=== PATIENT | male | born 1945 | race Caucasian/White ===

== ENCOUNTER 2021-10-16 12:27 | Inpatient (IN) | payer OTHER, MEDICARE ==
[2021-10-16 13:38] LABS: Hemoglobin 12.8 g/dL (13.5-17.5); Mean Corpuscular HGB CONC 33.9 g/dL (32.0-36.0); Mean Corpuscular Hemoglobin 29.5 pg (27.0-33.0); Mean Corpuscular Volume 87.1 fl (81.2-95.1); Mean Platelet Volume 9.5 fl (7.4-10.4); Platelet Count 264 10x3/uL (150-450); RBC Distribution Width 15.3 % (11.5-14.5); Red Blood Cell (RBC) Count 4.34 10x6/uL (4.32-5.72); White Blood Cell (WBC) Count 12.1 10x3/uL (3.5-10.5)
[2021-10-16 13:48] LABS: ALT (SGPT) 37 U/L (8-55); AST (SGOT) 43 U/L (5-34); Albumin 3.5 g/dL (3.4-4.8); Alkaline Phosphatase 124 U/L (40-110); Anion Gap 16 mmol/L (10-20); BUN (Urea Nitrogen) 22 mg/dL (8.4-25.7); Bilirubin, Total 0.8 mg/dL (0.2-1.2); Calc. Creatinine Clearance 0 mL/min (70-130); Calcium 9.6 mg/dL (7.8-10.44); Carbon Dioxide 25 mmol/L (23-31); Chloride 102 mmol/L (98-107); Globulin 3.9 g/dL (2.4-3.5); Glucose 180 mg/dL (83-110); Magnesium 2.2 mg/dL (1.6-2.6); Potassium 4.1 mmol/L (3.5-5.1); Protein, Total 7.4 g/dL (5.8-8.1); Sodium 139 mmol/L (136-145)
[2021-10-16 13:57] LABS: Actual Bicarbonate (HCO3v) 25 mEq/L (22-28); Base Excess 0.4 mEq/L (-2.0 to +3.0); Calcium, Ionized (venous) 1.07 mmol/L (1.16-1.32); Chloride (VBG) 103 mmol/L (98-106); Hemoglobin (Hb) 13.2 g/dL (12.6-17.4); Potassium (VBG) 4.02 mmol/L (3.70-5.30); Puncture Site Other Site; RapidComm Collect By CBN; Sodium 137.8 mmol/L (133-146)
[2021-10-16] MEDS ORDERED: Acetaminophen 650 MG Suppository PR PRN (14:14)
[2021-10-16 14:15] LABS: SARS-CoV-2 NAA Rapid Test DETECTED (NotDetected)
[2021-10-16 14:18] LABS: Band 16 % (5-11); Lymphocytes 4 % (21-51); Neutrophil 76 % (42-75)
[2021-10-16 14:19] LABS: Monocytes 4 % (0-10); Platelet Morphology Comment Appears Adequate
[2021-10-16 14:20] LABS: RBC Morphology Normal
[2021-10-16] MEDS ORDERED: cefTRIAXone\\ROCEPHIN 1 GM VIAL ONE (14:22)
[2021-10-16 14:43] LABS: MDiff Complete? YES
[2021-10-16] MEDS ORDERED: Pharmacy to Dose REMDESIVIR IVPB PRN (15:23)
[2021-10-16] MEDS ORDERED: Azithromycin 500 MG VIAL ONE (15:25)
[2021-10-16] MEDS ORDERED: Ventolin HFA Inhaler 60 PUFF INHALER INH PRN (16:37)
[2021-10-16] MEDS: REMDESIVIR 200 MG in Sodium Chloride 0.9% 250 ML 210 ML IV SCH ×2 (18:00→18:29)
[2021-10-16] MEDS: Famotidine 20 MG TAB PO SCH (20:47)
[2021-10-16] MEDS: Dexamethasone 20 MG/5 ML VIAL SLOW IVP SCH (20:48)
[2021-10-17 04:35] LABS: #Monocytes 0.9 10x3/uL (0.0-1.1); #Neutrophils 12.6 10x3/uL (1.5-8.4); %Basophils 0.1 % (0.0-2.0); %Lymphocytes 4.8 % (18.0-47.0); %Monocytes 6.5 % (0.0-10.0); %Neutrophils 87.8 % (40.0-75.0); Hemoglobin 12.8 g/dL (13.5-17.5); Mean Corpuscular HGB CONC 32.8 g/dL (32.0-36.0); Mean Corpuscular Hemoglobin 29.1 pg (27.0-33.0); Mean Corpuscular Volume 88.6 fl (81.2-95.1); Mean Platelet Volume 9.4 fl (7.4-10.4); Platelet Count 324 10x3/uL (150-450); White Blood Cell (WBC) Count 14.3 10x3/uL (3.5-10.5)
[2021-10-17 04:52] LABS: Anion Gap 16 mmol/L (10-20); BUN (Urea Nitrogen) 23 mg/dL (8.4-25.7); Calc. Creatinine Clearance 164 mL/min (70-130); Calcium 8.9 mg/dL (7.8-10.44); Carbon Dioxide 25 mmol/L (23-31); Chloride 103 mmol/L (98-107); Glucose 189 mg/dL (83-110); Potassium 4.4 mmol/L (3.5-5.1); Sodium 140 mmol/L (136-145)
[2021-10-17] MEDS: Furosemide 40 MG/4 ML VIAL SLOW IVP SCH ×2 (06:05→14:08)
[2021-10-17] MEDS: Dexamethasone 20 MG/5 ML VIAL SLOW IVP SCH ×2 (08:06→20:51)
[2021-10-17] MEDS: Enoxaparin Sodium 40 MG/0.4 ML SYRINGE SC SCH (08:07)
[2021-10-17] MEDS: Zinc Sulfate 220 MG CAP PO SCH (08:07)
[2021-10-17] MEDS: Famotidine 20 MG TAB PO SCH ×2 (08:07→20:51)
[2021-10-17] MEDS: Cholecalciferol (Vitamin D3) 400 UNITS TAB PO SCH ×3 (10:05→20:52)
[2021-10-17] MEDS ORDERED: Iopamidol 370 76% 100 ML VIAL ONE (11:02)
[2021-10-17] MEDS ORDERED: BARICITINIB 2 MG TAB PO SCH (14:00)
[2021-10-17] MEDS: Azithromycin 250 MG TAB PO SCH (14:06)
[2021-10-17] MEDS: cefTRIAXone\\ROCEPHIN 1 GM in Sodium Chloride 0.9% 100 ML IVPB SCH (14:07)
[2021-10-17] MEDS: BARICITINIB 2 MG TAB PO SCH (14:14)
[2021-10-17] MEDS ORDERED: REMDESIVIR 100 MG in Sodium Chloride 0.9% 250 ML 230 ML IV SCH (17:00)
[2021-10-18] MEDS: Melatonin 3 MG TAB PO PRN (00:13)
[2021-10-18] MEDS: Benzonatate 100 MG CAP PO PRN ×3 (01:09→21:38)
[2021-10-18] MEDS: Furosemide 40 MG/4 ML VIAL SLOW IVP SCH (05:31)
[2021-10-18 08:24] LABS: #Monocytes 1.2 10x3/uL (0.0-1.1); #Neutrophils 12.4 10x3/uL (1.5-8.4); %Basophils 0.1 % (0.0-2.0); %Lymphocytes 7.7 % (18.0-47.0); %Monocytes 7.7 % (0.0-10.0); %Neutrophils 83.8 % (40.0-75.0); Hemoglobin 12.8 g/dL (13.5-17.5); Mean Corpuscular HGB CONC 33.5 g/dL (32.0-36.0); Mean Corpuscular Hemoglobin 29.5 pg (27.0-33.0); Mean Platelet Volume 9.3 fl (7.4-10.4); Platelet Count 370 10x3/uL (150-450); RBC Distribution Width 15.5 % (11.5-14.5); Red Blood Cell (RBC) Count 4.34 10x6/uL (4.32-5.72); White Blood Cell (WBC) Count 14.8 10x3/uL (3.5-10.5)
[2021-10-18 08:39] LABS: Anion Gap 17 mmol/L (10-20); BUN (Urea Nitrogen) 31 mg/dL (8.4-25.7); CRP (Inflammatory) 15.78 mg/dL (= or < 0.5); Calc. Creatinine Clearance 148 mL/min (70-130); Calcium 8.8 mg/dL (7.8-10.44); Carbon Dioxide 27 mmol/L (23-31); Chloride 101 mmol/L (98-107); Glucose 190 mg/dL (83-110); Potassium 4.1 mmol/L (3.5-5.1); Sodium 141 mmol/L (136-145)
[2021-10-18] MEDS: Cholecalciferol (Vitamin D3) 400 UNITS TAB PO SCH ×3 (09:41→21:33)
[2021-10-18] MEDS: Zinc Sulfate 220 MG CAP PO SCH (09:41)
[2021-10-18] MEDS: Famotidine 20 MG TAB PO SCH (09:41)
[2021-10-18] MEDS: Dexamethasone 20 MG/5 ML VIAL SLOW IVP SCH ×2 (09:42→21:33)
[2021-10-18] MEDS: Enoxaparin Sodium 40 MG/0.4 ML SYRINGE SC SCH (09:42)
[2021-10-18] MEDS: BARICITINIB 2 MG TAB PO SCH (09:42)
[2021-10-18] MEDS ORDERED: Dextrose 50% Abboject 50 ML SYRINGE SLOW IVP PRN (12:06)
[2021-10-18] MEDS ORDERED: Dextrose 5% in Water 1,000 ML IV PRN (12:06)
[2021-10-18] MEDS: cefTRIAXone\\ROCEPHIN 1 GM in Sodium Chloride 0.9% 100 ML IVPB SCH (14:47)
[2021-10-18] MEDS: Azithromycin 250 MG TAB PO SCH (14:47)
[2021-10-18] MEDS: HumaLOG 300 UNITS/3 ML VIAL SC PRN ×2 (17:00→21:33)
[2021-10-18] MEDS: Apixaban 5 MG TAB PO SCH (21:33)
[2021-10-19] MEDS: Benzonatate 100 MG CAP PO PRN (03:09)
[2021-10-19 04:55] LABS: #Basophils 0.1 10x3/uL (0.0-0.2); #Monocytes 0.9 10x3/uL (0.0-1.1); #Neutrophils 11.6 10x3/uL (1.5-8.4); %Basophils 0.5 % (0.0-2.0); %Eosinophils 0.1 % (0.0-6.0); %Lymphocytes 9.1 % (18.0-47.0); %Monocytes 6.6 % (0.0-10.0); %Neutrophils 81.9 % (40.0-75.0); Hemoglobin 15.1 g/dL (13.5-17.5); Mean Corpuscular HGB CONC 34.1 g/dL (32.0-36.0); Mean Corpuscular Hemoglobin 29.5 pg (27.0-33.0); Mean Corpuscular Volume 86.7 fl (81.2-95.1); Mean Platelet Volume 11.1 fl (7.4-10.4); Platelet Count 300 10x3/uL (150-450); RBC Distribution Width 15.8 % (11.5-14.5); Red Blood Cell (RBC) Count 5.11 10x6/uL (4.32-5.72); White Blood Cell (WBC) Count 14.2 10x3/uL (3.5-10.5)
[2021-10-19 04:57] LABS: Anion Gap 22 mmol/L (10-20); BUN (Urea Nitrogen) 28 mg/dL (8.4-25.7); CRP (Inflammatory) 11.74 mg/dL (= or < 0.5); Calc. Creatinine Clearance 146 mL/min (70-130); Carbon Dioxide 22 mmol/L (23-31); Chloride 102 mmol/L (98-107); Glucose 174 mg/dL (83-110); Potassium 4.5 mmol/L (3.5-5.1); Sodium 141 mmol/L (136-145)
[2021-10-19] MEDS: HumaLOG 300 UNITS/3 ML VIAL SC PRN ×3 (06:23→15:12)
[2021-10-19] MEDS: Zinc Sulfate 220 MG CAP PO SCH (08:26)
[2021-10-19] MEDS: Dexamethasone 20 MG/5 ML VIAL SLOW IVP SCH ×2 (08:26→21:03)
[2021-10-19] MEDS: Aspirin 81 mg Enteric Coated Tablet PO SCH (08:27)
[2021-10-19] MEDS: Apixaban 5 MG TAB PO SCH ×2 (08:27→21:05)
[2021-10-19] MEDS: Cholecalciferol (Vitamin D3) 400 UNITS TAB PO SCH ×3 (08:27→21:05)
[2021-10-19] MEDS: BARICITINIB 2 MG TAB PO SCH (08:55)
[2021-10-19] MEDS: Furosemide 40 MG TAB PO SCH (10:38)
[2021-10-19] MEDS: cefTRIAXone\\ROCEPHIN 1 GM in Sodium Chloride 0.9% 100 ML IVPB SCH (13:59)
[2021-10-19] MEDS: Azithromycin 250 MG TAB PO SCH (13:59)
[2021-10-19] MEDS: Melatonin 3 MG TAB PO PRN (21:04)
[2021-10-19] MEDS: Atorvastatin Calcium 40 MG TAB PO SCH (21:05)
[2021-10-20 04:12] LABS: Hemoglobin 13.2 g/dL (13.5-17.5); Mean Corpuscular HGB CONC 34.2 g/dL (32.0-36.0); Mean Corpuscular Hemoglobin 29.6 pg (27.0-33.0); Mean Corpuscular Volume 86.5 fl (81.2-95.1); Mean Platelet Volume 9.4 fl (7.4-10.4); Platelet Count 367 10x3/uL (150-450); RBC Distribution Width 16.1 % (11.5-14.5); Red Blood Cell (RBC) Count 4.46 10x6/uL (4.32-5.72); White Blood Cell (WBC) Count 14.3 10x3/uL (3.5-10.5)
[2021-10-20 04:27] LABS: Anion Gap 17 mmol/L (10-20); BUN (Urea Nitrogen) 30 mg/dL (8.4-25.7); CRP (Inflammatory) 6.15 mg/dL (= or < 0.5); Calc. Creatinine Clearance 177 mL/min (70-130); Calcium 8.5 mg/dL (7.8-10.44); Carbon Dioxide 25 mmol/L (23-31); Chloride 102 mmol/L (98-107); Glucose 209 mg/dL (83-110); MDiff Complete? YES; Manual Diff?? YES; Potassium 4.6 mmol/L (3.5-5.1); Sodium 139 mmol/L (136-145)
[2021-10-20 04:30] LABS: Band 3 % (5-11); Lymphocytes 6 % (21-51); Monocytes 7 % (0-10); Neutrophil 84 % (42-75)
[2021-10-20 04:31] LABS: Platelet Morphology Comment Appears Adequate
[2021-10-20 04:33] LABS: Anisocytosis SLIGHT = 6-15 cells (100X) (0-5/hpf); Dohle Bodies SLIGHT; Macrocytosis SLIGHT = 6-15 cells (100X) (0-5/hpf); Microcytosis SLIGHT = 6-15 cells (100X) (0-5/hpf); Polychromasia SLIGHT = 2-3 cells (100X) (0-2/hpf); Toxic Granulation SLIGHT; Vacuoles SLIGHT
[2021-10-20] MEDS: Furosemide 40 MG TAB PO SCH (07:34)
[2021-10-20] MEDS: HumaLOG 300 UNITS/3 ML VIAL SC PRN ×3 (07:35→23:27)
[2021-10-20] MEDS: BARICITINIB 2 MG TAB PO SCH (09:21)
[2021-10-20] MEDS: Apixaban 5 MG TAB PO SCH ×2 (09:21→20:24)
[2021-10-20] MEDS: Aspirin 81 mg Enteric Coated Tablet PO SCH (09:21)
[2021-10-20] MEDS: Dexamethasone 20 MG/5 ML VIAL SLOW IVP SCH ×2 (09:22→20:23)
[2021-10-20] MEDS: Zinc Sulfate 220 MG CAP PO SCH (09:22)
[2021-10-20] MEDS: Cholecalciferol (Vitamin D3) 400 UNITS TAB PO SCH ×3 (09:22→20:24)
[2021-10-20 09:46] LABS: Actual Bicarbonate (HCO3a) 31.2 mEq/L (22-28); Base Excess (BEa) 7.3 mEq/L (-2.0 to +3.0); CO2 Tension 41.3 mmHg (35.0-45.0); Calcium, Ionized (arterial) 1.13 mmol/L (1.12-1.30); Carboxyhemoglobin (COHb) 0.4 gm% (0.0-3.0); Hemoglobin (Hb) 14.2 g/dL (14.0-18.0); O2 Tension (PaO2), arterial 58.5 mmHg (> 70.0); Potassium - ABG Lab 4.4 mmol/L (3.70-5.30); Puncture Site LRA
[2021-10-20 09:49] LABS: ALV-art Gradient 531.575 mmHg (0-20)
[2021-10-20] MEDS ORDERED: guaiFENesin ER 600 MG TAB PO SCH (10:00)
[2021-10-20] MEDS: cefTRIAXone\\ROCEPHIN 1 GM in Sodium Chloride 0.9% 100 ML IVPB SCH (15:40)
[2021-10-20] MEDS: Azithromycin 250 MG TAB PO SCH (15:40)
[2021-10-20] MEDS: Melatonin 3 MG TAB PO PRN (20:23)
[2021-10-20] MEDS: guaiFENesin ER 600 MG TAB PO SCH (20:24)
[2021-10-20] MEDS: Atorvastatin Calcium 40 MG TAB PO SCH (20:24)
[2021-10-21] MEDS: HumaLOG 300 UNITS/3 ML VIAL SC PRN ×4 (06:32→20:18)
[2021-10-21] MEDS: Furosemide 40 MG TAB PO SCH ×2 (06:33→08:51)
[2021-10-21] MEDS: Dexamethasone 20 MG/5 ML VIAL SLOW IVP SCH ×2 (08:50→20:17)
[2021-10-21] MEDS: BARICITINIB 2 MG TAB PO SCH (08:50)
[2021-10-21] MEDS: Apixaban 5 MG TAB PO SCH ×2 (08:51→20:16)
[2021-10-21] MEDS: Benzonatate 100 MG CAP PO PRN ×2 (08:51→20:16)
[2021-10-21] MEDS: Zinc Sulfate 220 MG CAP PO SCH (08:51)
[2021-10-21] MEDS: Cholecalciferol (Vitamin D3) 400 UNITS TAB PO SCH ×3 (08:51→20:16)
[2021-10-21] MEDS: Aspirin 81 mg Enteric Coated Tablet PO SCH (08:51)
[2021-10-21] MEDS: guaiFENesin ER 600 MG TAB PO SCH ×2 (08:51→20:17)
[2021-10-21] MEDS: cefTRIAXone\\ROCEPHIN 1 GM in Sodium Chloride 0.9% 100 ML IVPB SCH (13:29)
[2021-10-21] MEDS: Melatonin 3 MG TAB PO PRN (20:16)
[2021-10-21] MEDS: Acetaminophen 325 MG TAB PO PRN (20:17)
[2021-10-21] MEDS: Atorvastatin Calcium 40 MG TAB PO SCH (20:17)
[2021-10-22 05:11] LABS: Hemoglobin 14.5 g/dL (13.5-17.5); Mean Corpuscular HGB CONC 34.3 g/dL (32.0-36.0); Mean Corpuscular Hemoglobin 29.1 pg (27.0-33.0); Mean Corpuscular Volume 84.8 fl (81.2-95.1); Mean Platelet Volume 9.9 fl (7.4-10.4); Platelet Count 413 10x3/uL (150-450); RBC Distribution Width 16.3 % (11.5-14.5); Red Blood Cell (RBC) Count 4.99 10x6/uL (4.32-5.72); White Blood Cell (WBC) Count 16.9 10x3/uL (3.5-10.5)
[2021-10-22 05:21] LABS: MDiff Complete? YES; Manual Diff?? YES
[2021-10-22 05:38] LABS: Anion Gap 20 mmol/L (10-20); BUN (Urea Nitrogen) 36 mg/dL (8.4-25.7); CRP (Inflammatory) 3.09 mg/dL (= or < 0.5); Calc. Creatinine Clearance 144 mL/min (70-130); Calcium 8.7 mg/dL (7.8-10.44); Carbon Dioxide 23 mmol/L (23-31); Chloride 101 mmol/L (98-107); Glucose 223 mg/dL (83-110); Potassium 5.3 mmol/L (3.5-5.1); Sodium 139 mmol/L (136-145)
[2021-10-22] MEDS: HumaLOG 300 UNITS/3 ML VIAL SC PRN ×2 (05:42→20:30)
[2021-10-22 06:14] LABS: Band 11 % (5-11); Lymphocytes 8 % (21-51); Monocytes 4 % (0-10); Neutrophil 73 % (42-75); Platelet Morphology Comment Appears Adequate; Reactive Lymphocytes 4 % (0-10)
[2021-10-22] MEDS: Cholecalciferol (Vitamin D3) 400 UNITS TAB PO SCH ×3 (08:59→20:32)
[2021-10-22] MEDS: guaiFENesin ER 600 MG TAB PO SCH ×2 (08:59→20:32)
[2021-10-22] MEDS: Aspirin 81 mg Enteric Coated Tablet PO SCH (09:00)
[2021-10-22] MEDS: Apixaban 5 MG TAB PO SCH ×2 (09:00→20:32)
[2021-10-22] MEDS: Zinc Sulfate 220 MG CAP PO SCH (09:00)
[2021-10-22] MEDS: BARICITINIB 2 MG TAB PO SCH (09:00)
[2021-10-22] MEDS: Dexamethasone 20 MG/5 ML VIAL SLOW IVP SCH ×2 (09:01→20:31)
[2021-10-22] MEDS: cefTRIAXone\\ROCEPHIN 1 GM in Sodium Chloride 0.9% 100 ML IVPB SCH (14:54)
[2021-10-22] MEDS: Atorvastatin Calcium 40 MG TAB PO SCH (20:32)
[2021-10-23 05:56] LABS: Anion Gap 17 mmol/L (10-20); BUN (Urea Nitrogen) 30 mg/dL (8.4-25.7); CRP (Inflammatory) 2.21 mg/dL (= or < 0.5); Calc. Creatinine Clearance 145 mL/min (70-130); Calcium 8.7 mg/dL (7.8-10.44); Carbon Dioxide 29 mmol/L (23-31); Chloride 97 mmol/L (98-107); Glucose 197 mg/dL (83-110); Potassium 4.9 mmol/L (3.5-5.1); Sodium 138 mmol/L (136-145)
[2021-10-23] MEDS: HumaLOG 300 UNITS/3 ML VIAL SC PRN ×4 (06:24→20:46)
[2021-10-23] MEDS: Furosemide 40 MG TAB PO SCH (06:30)
[2021-10-23] MEDS: Dexamethasone 20 MG/5 ML VIAL SLOW IVP SCH (08:17)
[2021-10-23] MEDS: BARICITINIB 2 MG TAB PO SCH (08:18)
[2021-10-23] MEDS: Zinc Sulfate 220 MG CAP PO SCH (08:18)
[2021-10-23] MEDS: Aspirin 81 mg Enteric Coated Tablet PO SCH (08:18)
[2021-10-23] MEDS: Cholecalciferol (Vitamin D3) 400 UNITS TAB PO SCH ×3 (08:18→20:45)
[2021-10-23] MEDS: guaiFENesin ER 600 MG TAB PO SCH ×2 (08:19→20:45)
[2021-10-23] MEDS: Apixaban 5 MG TAB PO SCH ×2 (08:19→20:45)
[2021-10-23] MEDS: cefTRIAXone\\ROCEPHIN 1 GM in Sodium Chloride 0.9% 100 ML IVPB SCH (14:41)
[2021-10-23] MEDS: Atorvastatin Calcium 40 MG TAB PO SCH (20:45)
[2021-10-24] MEDS: Furosemide 40 MG TAB PO SCH (08:50)
[2021-10-24] MEDS: Cholecalciferol (Vitamin D3) 400 UNITS TAB PO SCH ×3 (08:50→20:59)
[2021-10-24] MEDS: Zinc Sulfate 220 MG CAP PO SCH (08:50)
[2021-10-24] MEDS: Apixaban 5 MG TAB PO SCH ×2 (08:50→20:59)
[2021-10-24] MEDS: guaiFENesin ER 600 MG TAB PO SCH ×2 (08:50→20:59)
[2021-10-24] MEDS: BARICITINIB 2 MG TAB PO SCH (08:50)
[2021-10-24] MEDS: Dexamethasone 4 mg/ml Vial SLOW IVP SCH (08:50)
[2021-10-24] MEDS: Aspirin 81 mg Enteric Coated Tablet PO SCH (08:50)
[2021-10-24] MEDS: HumaLOG 300 UNITS/3 ML VIAL SC PRN ×2 (13:26→17:01)
[2021-10-24] MEDS: cefTRIAXone\\ROCEPHIN 1 GM in Sodium Chloride 0.9% 100 ML IVPB SCH (13:28)
[2021-10-24] MEDS: Benzonatate 100 MG CAP PO SCH ×2 (14:42→20:59)
[2021-10-24] MEDS: Atorvastatin Calcium 40 MG TAB PO SCH (20:59)
[2021-10-25 05:15] LABS: Anion Gap 15 mmol/L (10-20); BUN (Urea Nitrogen) 32 mg/dL (8.4-25.7); CRP (Inflammatory) 5.69 mg/dL (= or < 0.5); Calc. Creatinine Clearance 152 mL/min (70-130); Calcium 8.4 mg/dL (7.8-10.44); Carbon Dioxide 29 mmol/L (23-31); Chloride 98 mmol/L (98-107); Glucose 204 mg/dL (83-110); Sodium 137 mmol/L (136-145)
[2021-10-25 05:21] LABS: #Basophils 0.1 10x3/uL (0.0-0.2); #Eosinphils 0.2 10x3/uL (0.0-0.5); #Monocytes 1.1 10x3/uL (0.0-1.1); #Neutrophils 15.8 10x3/uL (1.5-8.4); %Basophils 0.4 % (0.0-2.0); %Eosinophils 0.8 % (0.0-6.0); %Lymphocytes 7.6 % (18.0-47.0); %Monocytes 5.7 % (0.0-10.0); %Neutrophils 83.2 % (40.0-75.0); Hemoglobin 13.6 g/dL (13.5-17.5); Mean Corpuscular HGB CONC 32.6 g/dL (32.0-36.0); Mean Corpuscular Hemoglobin 29.1 pg (27.0-33.0); Mean Corpuscular Volume 89.1 fl (81.2-95.1); Mean Platelet Volume 9.1 fl (7.4-10.4); Platelet Count 531 10x3/uL (150-450); RBC Distribution Width 16.5 % (11.5-14.5); Red Blood Cell (RBC) Count 4.68 10x6/uL (4.32-5.72)
[2021-10-25] MEDS: Furosemide 40 MG TAB PO SCH (06:09)
[2021-10-25] MEDS: Zinc Sulfate 220 MG CAP PO SCH (08:38)
[2021-10-25] MEDS: Dexamethasone 4 mg/ml Vial SLOW IVP SCH (08:38)
[2021-10-25] MEDS: Benzonatate 100 MG CAP PO SCH ×3 (08:39→21:48)
[2021-10-25] MEDS: Apixaban 5 MG TAB PO SCH ×2 (08:39→21:48)
[2021-10-25] MEDS: Cholecalciferol (Vitamin D3) 400 UNITS TAB PO SCH ×3 (08:39→21:48)
[2021-10-25] MEDS: Aspirin 81 mg Enteric Coated Tablet PO SCH (08:39)
[2021-10-25] MEDS: guaiFENesin ER 600 MG TAB PO SCH ×2 (08:39→21:48)
[2021-10-25] MEDS: BARICITINIB 2 MG TAB PO SCH (08:39)
[2021-10-25] MEDS: HumaLOG 300 UNITS/3 ML VIAL SC PRN ×2 (12:50→15:32)
[2021-10-25] MEDS: cefTRIAXone\\ROCEPHIN 1 GM in Sodium Chloride 0.9% 100 ML IVPB SCH (15:30)
[2021-10-25] MEDS: Atorvastatin Calcium 40 MG TAB PO SCH (21:48)
[2021-10-26] MEDS: Furosemide 40 MG TAB PO SCH (06:38)
[2021-10-26] MEDS: Dexamethasone 4 mg/ml Vial SLOW IVP SCH (08:45)
[2021-10-26] MEDS: BARICITINIB 2 MG TAB PO SCH (08:45)
[2021-10-26] MEDS: Benzonatate 100 MG CAP PO SCH ×3 (08:45→22:26)
[2021-10-26] MEDS: Apixaban 5 MG TAB PO SCH ×2 (08:46→22:25)
[2021-10-26] MEDS: Cholecalciferol (Vitamin D3) 400 UNITS TAB PO SCH ×3 (08:46→22:26)
[2021-10-26] MEDS: Aspirin 81 mg Enteric Coated Tablet PO SCH (08:46)
[2021-10-26] MEDS: Zinc Sulfate 220 MG CAP PO SCH (08:46)
[2021-10-26] MEDS: guaiFENesin ER 600 MG TAB PO SCH ×2 (08:46→22:26)
[2021-10-26 11:31] LABS: Actual Bicarbonate (HCO3a) 30.6 mEq/L (22-28); Base Excess (BEa) 6.8 mEq/L (-2.0 to +3.0); CO2 Tension 40.2 mmHg (35.0-45.0); Calcium, Ionized (arterial) 1.12 mmol/L (1.12-1.30); Carboxyhemoglobin (COHb) 0.7 gm% (0.0-3.0); O2 Tension (PaO2), arterial 52.5 mmHg (> 70.0); Potassium - ABG Lab 4.4 mmol/L (3.70-5.30); Puncture Site LRA
[2021-10-26] MEDS: HumaLOG 300 UNITS/3 ML VIAL SC PRN (12:38)
[2021-10-26] MEDS ORDERED: Piperacillin/Tazobactam 3.375 GM in Sodium Chloride 0.9% 100 ML IVPB SCH ×2 (14:45→15:00)
[2021-10-26] MEDS ORDERED: Pharmacy to Dose VANC & ABX IVPB PRN (14:51)
[2021-10-26] MEDS ORDERED: VANCOMYCIN 1.75 GM/350 ML BAG 1.75 GM in Premix Bag 1 BAG IVPB SCH (15:00)
[2021-10-26] MEDS: Hydrocortisone Sod Succ/PF 100 mg/2 ml Vial IVP SCH ×2 (15:54→23:23)
[2021-10-26] MEDS ORDERED: Norepinephrine 8 MG/0.9% NS 250 ML IVPB SCH (16:00)
[2021-10-26] MEDS ORDERED: Vancomycin HCl 1.75 GM, Admixture Fee 1 EACH in Sodium Chloride 0.9% 500 ML IVPB SCH (16:00)
[2021-10-26] MEDS: Piperacillin/Tazobactam 3.375 GM in Sodium Chloride 0.9% 100 ML IVPB SCH (19:31)
[2021-10-26] MEDS ORDERED: Vancomycin 1.5 GRAM/300 ML BAG IVPB SCH (21:00)
[2021-10-26] MEDS: Famotidine/PF 20 mg/2ml Vial SLOW IVP SCH (21:52)
[2021-10-26] MEDS: Atorvastatin Calcium 40 MG TAB PO SCH (22:26)
[2021-10-27] MEDS: Vancomycin 1.5 GRAM/300 ML BAG 1.5 GM in Premix Bag 1 BAG IVPB SCH ×2 (04:03→16:03)
[2021-10-27] MEDS: Piperacillin/Tazobactam 3.375 GM in Sodium Chloride 0.9% 100 ML IVPB SCH ×3 (04:03→19:33)
[2021-10-27] MEDS: Furosemide 40 MG/4 ML VIAL SLOW IVP SCH ×2 (05:18→14:20)
[2021-10-27] MEDS: guaiFENesin ER 600 MG TAB PO SCH ×2 (07:56→19:34)
[2021-10-27] MEDS: Hydrocortisone Sod Succ/PF 100 mg/2 ml Vial IVP SCH ×2 (07:57→16:04)
[2021-10-27] MEDS: Benzonatate 100 MG CAP PO SCH ×3 (07:57→19:34)
[2021-10-27] MEDS: Apixaban 5 MG TAB PO SCH ×2 (07:57→19:34)
[2021-10-27] MEDS: Zinc Sulfate 220 MG CAP PO SCH (07:57)
[2021-10-27] MEDS: Aspirin 81 mg Enteric Coated Tablet PO SCH (07:57)
[2021-10-27] MEDS: Famotidine/PF 20 mg/2ml Vial SLOW IVP SCH ×2 (07:57→19:34)
[2021-10-27] MEDS: Cholecalciferol (Vitamin D3) 400 UNITS TAB PO SCH ×3 (07:57→19:34)
[2021-10-27 08:58] LABS: #Monocytes 1.1 10x3/uL (0.0-1.1); #Neutrophils 15.2 10x3/uL (1.5-8.4); %Basophils 0.1 % (0.0-2.0); %Lymphocytes 5.6 % (18.0-47.0); %Monocytes 6.3 % (0.0-10.0); %Neutrophils 86.9 % (40.0-75.0); Hemoglobin 13.9 g/dL (13.5-17.5); Mean Corpuscular Hemoglobin 29.4 pg (27.0-33.0); Platelet Count 580 10x3/uL (150-450); RBC Distribution Width 16.3 % (11.5-14.5); Red Blood Cell (RBC) Count 4.73 10x6/uL (4.32-5.72); White Blood Cell (WBC) Count 17.5 10x3/uL (3.5-10.5)
[2021-10-27 09:18] LABS: Anion Gap 14 mmol/L (10-20); BUN (Urea Nitrogen) 29 mg/dL (8.4-25.7); Calc. Creatinine Clearance 134 mL/min (70-130); Calcium 8.7 mg/dL (7.8-10.44); Carbon Dioxide 33 mmol/L (23-31); Chloride 94 mmol/L (98-107); Glucose 187 mg/dL (83-110); Potassium 4.2 mmol/L (3.5-5.1); Sodium 137 mmol/L (136-145)
[2021-10-27] MEDS: HumaLOG 300 UNITS/3 ML VIAL SC PRN (16:21)
[2021-10-27] MEDS: Atorvastatin Calcium 40 MG TAB PO SCH (19:34)
[2021-10-28] MEDS: Piperacillin/Tazobactam 3.375 GM in Sodium Chloride 0.9% 100 ML IVPB SCH ×3 (02:54→11:40)
[2021-10-28] MEDS: Hydrocortisone Sod Succ/PF 100 mg/2 ml Vial IVP SCH ×4 (02:54→23:41)
[2021-10-28] MEDS: Vancomycin 1.5 GRAM/300 ML BAG 1.5 GM in Premix Bag 1 BAG IVPB SCH (03:47)
[2021-10-28] MEDS: Furosemide 40 MG/4 ML VIAL SLOW IVP SCH ×2 (04:49→14:13)
[2021-10-28 04:55] LABS: #Monocytes 1.5 10x3/uL (0.0-1.1); #Neutrophils 15.1 10x3/uL (1.5-8.4); %Basophils 0.1 % (0.0-2.0); %Eosinophils 0.1 % (0.0-6.0); %Monocytes 8.7 % (0.0-10.0); %Neutrophils 85.3 % (40.0-75.0); Hemoglobin 14.2 g/dL (13.5-17.5); Mean Corpuscular HGB CONC 33.4 g/dL (32.0-36.0); Mean Corpuscular Hemoglobin 29.6 pg (27.0-33.0); Mean Corpuscular Volume 88.7 fl (81.2-95.1); Mean Platelet Volume 9.6 fl (7.4-10.4); Platelet Count 574 10x3/uL (150-450); RBC Distribution Width 16.2 % (11.5-14.5); Red Blood Cell (RBC) Count 4.79 10x6/uL (4.32-5.72); White Blood Cell (WBC) Count 17.7 10x3/uL (3.5-10.5)
[2021-10-28 05:08] LABS: Vancomycin, Trough 17.8 ug/mL
[2021-10-28 05:20] LABS: Anion Gap 15 mmol/L (10-20); BUN (Urea Nitrogen) 32 mg/dL (8.4-25.7); Calc. Creatinine Clearance 137 mL/min (70-130); Calcium 8.8 mg/dL (7.8-10.44); Carbon Dioxide 33 mmol/L (23-31); Chloride 97 mmol/L (98-107); Glucose 147 mg/dL (83-110); Sodium 141 mmol/L (136-145)
[2021-10-28 06:36] LABS: Actual Bicarbonate (HCO3a) 34.1 mEq/L (22-28); Base Excess (BEa) 9.3 mEq/L (-2.0 to +3.0); CO2 Tension 46.4 mmHg (35.0-45.0); Calcium, Ionized (arterial) 1.14 mmol/L (1.12-1.30); Hemoglobin (Hb) 14.5 g/dL (14.0-18.0); O2 Tension (PaO2), arterial 47.9 mmHg (> 70.0); Potassium - ABG Lab 3.8 mmol/L (3.70-5.30); Puncture Site LRA; pH, Arterial 7.48 (7.35-7.45)
[2021-10-28] MEDS: Zinc Sulfate 220 MG CAP PO SCH (08:26)
[2021-10-28] MEDS: Famotidine/PF 20 mg/2ml Vial SLOW IVP SCH ×2 (08:26→19:27)
[2021-10-28] MEDS: guaiFENesin ER 600 MG TAB PO SCH ×2 (08:26→19:27)
[2021-10-28] MEDS: Cholecalciferol (Vitamin D3) 400 UNITS TAB PO SCH ×3 (08:27→19:27)
[2021-10-28] MEDS: Apixaban 5 MG TAB PO SCH ×2 (08:27→19:27)
[2021-10-28] MEDS: Benzonatate 100 MG CAP PO SCH ×3 (08:27→19:27)
[2021-10-28] MEDS: Aspirin 81 mg Enteric Coated Tablet PO SCH (08:27)
[2021-10-28 09:39] LABS: Actual Bicarbonate (HCO3a) 30.3 mEq/L (22-28); Base Excess (BEa) 6.3 mEq/L (-2.0 to +3.0); CO2 Tension 41.1 mmHg (35.0-45.0); Calcium, Ionized (arterial) 1.13 mmol/L (1.12-1.30); Carboxyhemoglobin (COHb) 0.9 gm% (0.0-3.0); Hemoglobin (Hb) 14.9 g/dL (14.0-18.0); Potassium - ABG Lab 3.8 mmol/L (3.70-5.30); Puncture Site LRA; pH, Arterial 7.49 (7.35-7.45)
[2021-10-28 09:42] LABS: ALV-art Gradient 612.625 mmHg (0-20)
[2021-10-28 10:04] LABS: ALT (SGPT) 26 U/L (8-55); AST (SGOT) 20 U/L (5-34); Alkaline Phosphatase 87 U/L (40-110); Bilirubin, Direct 0.5 mg/dL (0.1-0.3); Bilirubin, Total 1.2 mg/dL (0.2-1.2); Protein, Total 6.2 g/dL (5.8-8.1)
[2021-10-28] MEDS: Cefepime 2 GM in Sodium Chloride 0.9% 100 ML IVPB SCH ×2 (14:13→21:48)
[2021-10-28 15:37] LABS: Vancomycin, Trough 18.4 ug/mL
[2021-10-28] MEDS: VANCOMYCIN 1.25 GM/250 ML BAG 1.25 GM in Premix Bag 1 BAG IVPB SCH (16:25)
[2021-10-28] MEDS: Atorvastatin Calcium 40 MG TAB PO SCH (19:27)
[2021-10-28] MEDS ORDERED: Bisacodyl 10 MG SUPP PR SCH (20:30)
[2021-10-29] MEDS: VANCOMYCIN 1.25 GM/250 ML BAG 1.25 GM in Premix Bag 1 BAG IVPB SCH ×2 (04:05→16:23)
[2021-10-29 05:14] LABS: #Monocytes 1.3 10x3/uL (0.0-1.1); #Neutrophils 17.2 10x3/uL (1.5-8.4); %Basophils 0.1 % (0.0-2.0); %Lymphocytes 3.2 % (18.0-47.0); %Monocytes 6.9 % (0.0-10.0); %Neutrophils 89.1 % (40.0-75.0); Hemoglobin 14.5 g/dL (13.5-17.5); Mean Corpuscular HGB CONC 32.9 g/dL (32.0-36.0); Mean Corpuscular Hemoglobin 29.3 pg (27.0-33.0); Mean Corpuscular Volume 89.1 fl (81.2-95.1); Mean Platelet Volume 9.6 fl (7.4-10.4); Platelet Count 539 10x3/uL (150-450); RBC Distribution Width 16.2 % (11.5-14.5); Red Blood Cell (RBC) Count 4.95 10x6/uL (4.32-5.72); White Blood Cell (WBC) Count 19.3 10x3/uL (3.5-10.5)
[2021-10-29 05:30] LABS: ALT (SGPT) 25 U/L (8-55); AST (SGOT) 23 U/L (5-34); Albumin 3.1 g/dL (3.4-4.8); Alkaline Phosphatase 90 U/L (40-110); Anion Gap 17 mmol/L (10-20); BUN (Urea Nitrogen) 31 mg/dL (8.4-25.7); Bilirubin, Direct 0.6 mg/dL (0.1-0.3); Bilirubin, Total 1.3 mg/dL (0.2-1.2); CRP (Inflammatory) 25.91 mg/dL (= or < 0.5); Calc. Creatinine Clearance 139 mL/min (70-130); Calcium 9.1 mg/dL (7.8-10.44); Carbon Dioxide 33 mmol/L (23-31); Chloride 96 mmol/L (98-107); Estimated GFR 78; Glucose 172 mg/dL (83-110); Magnesium 2.5 mg/dL (1.6-2.6); Potassium 3.9 mmol/L (3.5-5.1); Protein, Total 6.7 g/dL (5.8-8.1); Sodium 142 mmol/L (136-145)
[2021-10-29] MEDS: Cefepime 2 GM in Sodium Chloride 0.9% 100 ML IVPB SCH ×3 (05:58→21:27)
[2021-10-29] MEDS: Furosemide 40 MG/4 ML VIAL SLOW IVP SCH ×2 (05:58→14:08)
[2021-10-29] MEDS: Famotidine/PF 20 mg/2ml Vial SLOW IVP SCH ×2 (08:40→21:22)
[2021-10-29] MEDS: Hydrocortisone Sod Succ/PF 100 mg/2 ml Vial IVP SCH ×2 (08:40→16:23)
[2021-10-29] MEDS: Zinc Sulfate 220 MG CAP PO SCH (08:41)
[2021-10-29] MEDS: Benzonatate 100 MG CAP PO SCH ×3 (08:41→21:22)
[2021-10-29] MEDS: Cholecalciferol (Vitamin D3) 400 UNITS TAB PO SCH ×3 (08:41→21:22)
[2021-10-29] MEDS: Apixaban 5 MG TAB PO SCH ×2 (08:41→21:22)
[2021-10-29] MEDS: guaiFENesin ER 600 MG TAB PO SCH ×2 (08:41→21:22)
[2021-10-29] MEDS: Aspirin 81 mg Enteric Coated Tablet PO SCH (08:41)
[2021-10-29] MEDS: Mupirocin 2% Ointment 22 GM Tube TOP SCH ×3 (11:11→21:22)
[2021-10-29 12:46] LABS: Hemoglobin A1c 6.7 % (4.0-6.0)
[2021-10-29] MEDS ORDERED: Polyethylene Glycol 3350 17 GM Packet PO SCH (18:00)
[2021-10-29] MEDS: Atorvastatin Calcium 40 MG TAB PO SCH (21:22)
[2021-10-29] MEDS: Senokot S 8.6-50 MG TAB PO SCH (21:23)
[2021-10-30] MEDS: Hydrocortisone Sod Succ/PF 100 mg/2 ml Vial IVP SCH ×3 (00:06→15:13)
[2021-10-30] MEDS: VANCOMYCIN 1.25 GM/250 ML BAG 1.25 GM in Premix Bag 1 BAG IVPB SCH ×2 (03:35→15:13)
[2021-10-30 04:36] LABS: #Monocytes 0.9 10x3/uL (0.0-1.1); #Neutrophils 11.9 10x3/uL (1.5-8.4); %Basophils 0.1 % (0.0-2.0); %Eosinophils 0.1 % (0.0-6.0); %Lymphocytes 4.2 % (18.0-47.0); %Monocytes 6.6 % (0.0-10.0); %Neutrophils 88.4 % (40.0-75.0); Hemoglobin 12.9 g/dL (13.5-17.5); Mean Corpuscular Hemoglobin 29.5 pg (27.0-33.0); Mean Corpuscular Volume 89.5 fl (81.2-95.1); Mean Platelet Volume 9.4 fl (7.4-10.4); Platelet Count 463 10x3/uL (150-450); RBC Distribution Width 16.2 % (11.5-14.5); Red Blood Cell (RBC) Count 4.37 10x6/uL (4.32-5.72); White Blood Cell (WBC) Count 13.5 10x3/uL (3.5-10.5)
[2021-10-30 05:10] LABS: Anion Gap 17 mmol/L (10-20); BUN (Urea Nitrogen) 32 mg/dL (8.4-25.7); Calc. Creatinine Clearance 173 mL/min (70-130); Calcium 8.7 mg/dL (7.8-10.44); Carbon Dioxide 31 mmol/L (23-31); Chloride 97 mmol/L (98-107); Estimated GFR 93; Glucose 160 mg/dL (83-110); Magnesium 2.5 mg/dL (1.6-2.6); Potassium 3.7 mmol/L (3.5-5.1); Sodium 141 mmol/L (136-145)
[2021-10-30] MEDS: Furosemide 40 MG/4 ML VIAL SLOW IVP SCH ×2 (06:44→14:03)
[2021-10-30] MEDS: Cefepime 2 GM in Sodium Chloride 0.9% 100 ML IVPB SCH ×3 (06:45→21:59)
[2021-10-30] MEDS: Zinc Sulfate 220 MG CAP PO SCH (09:03)
[2021-10-30] MEDS: guaiFENesin ER 600 MG TAB PO SCH ×2 (09:03→19:43)
[2021-10-30] MEDS: Benzonatate 100 MG CAP PO SCH ×3 (09:03→19:42)
[2021-10-30] MEDS: Senokot S 8.6-50 MG TAB PO SCH ×2 (09:03→19:43)
[2021-10-30] MEDS: Apixaban 5 MG TAB PO SCH ×2 (09:03→19:43)
[2021-10-30] MEDS: Aspirin 81 mg Enteric Coated Tablet PO SCH (09:03)
[2021-10-30] MEDS: Cholecalciferol (Vitamin D3) 400 UNITS TAB PO SCH ×3 (09:03→19:43)
[2021-10-30] MEDS: Famotidine/PF 20 mg/2ml Vial SLOW IVP SCH ×2 (09:04→19:42)
[2021-10-30] MEDS: Polyethylene Glycol 3350 17 GM Packet PO SCH (09:04)
[2021-10-30] MEDS: Mupirocin 2% Ointment 22 GM Tube TOP SCH ×3 (09:05→20:10)
[2021-10-30] MEDS: HumaLOG 300 UNITS/3 ML VIAL SC PRN ×3 (12:03→20:39)
[2021-10-30 15:10] LABS: Legionella Urinary Ag Negative (Negative); Strep pneumo Urine Ag NEGATIVE (NEGATIVE)
[2021-10-30 15:34] LABS: Vancomycin, Trough 18.5 ug/mL
[2021-10-30] MEDS: Atorvastatin Calcium 40 MG TAB PO SCH (19:43)
[2021-10-31] MEDS: Hydrocortisone Sod Succ/PF 100 mg/2 ml Vial IVP SCH ×3 (00:22→16:50)
[2021-10-31] MEDS: VANCOMYCIN 1.25 GM/250 ML BAG 1.25 GM in Premix Bag 1 BAG IVPB SCH (03:06)
[2021-10-31 04:45] LABS: #Monocytes 0.9 10x3/uL (0.0-1.1); #Neutrophils 9.4 10x3/uL (1.5-8.4); %Basophils 0.2 % (0.0-2.0); %Eosinophils 0.1 % (0.0-6.0); %Lymphocytes 6.4 % (18.0-47.0); %Monocytes 8.2 % (0.0-10.0); %Neutrophils 84.2 % (40.0-75.0); Hemoglobin 13.9 g/dL (13.5-17.5); Mean Corpuscular HGB CONC 32.9 g/dL (32.0-36.0); Mean Corpuscular Hemoglobin 29.6 pg (27.0-33.0); Mean Corpuscular Volume 89.8 fl (81.2-95.1); Mean Platelet Volume 10.1 fl (7.4-10.4); Platelet Count 397 10x3/uL (150-450); RBC Distribution Width 16.1 % (11.5-14.5); White Blood Cell (WBC) Count 11.1 10x3/uL (3.5-10.5)
[2021-10-31 04:49] LABS: Anion Gap 21 mmol/L (10-20); BUN (Urea Nitrogen) 32 mg/dL (8.4-25.7); Calc. Creatinine Clearance 167 mL/min (70-130); Carbon Dioxide 26 mmol/L (23-31); Chloride 97 mmol/L (98-107); Estimated GFR 92; Glucose 129 mg/dL (83-110); Magnesium 2.6 mg/dL (1.6-2.6); Potassium 3.9 mmol/L (3.5-5.1); Sodium 140 mmol/L (136-145)
[2021-10-31] MEDS: Furosemide 40 MG/4 ML VIAL SLOW IVP SCH ×3 (05:00→20:19)
[2021-10-31] MEDS: Cefepime 2 GM in Sodium Chloride 0.9% 100 ML IVPB SCH ×3 (05:00→22:50)
[2021-10-31] MEDS: Polyethylene Glycol 3350 17 GM Packet PO SCH ×2 (08:03→09:42)
[2021-10-31] MEDS: Famotidine/PF 20 mg/2ml Vial SLOW IVP SCH ×2 (08:03→20:19)
[2021-10-31] MEDS: Aspirin 81 mg Enteric Coated Tablet PO SCH (08:04)
[2021-10-31] MEDS: guaiFENesin ER 600 MG TAB PO SCH ×2 (08:04→20:20)
[2021-10-31] MEDS: Cholecalciferol (Vitamin D3) 400 UNITS TAB PO SCH ×3 (08:04→20:19)
[2021-10-31] MEDS: Apixaban 5 MG TAB PO SCH ×2 (08:04→20:20)
[2021-10-31] MEDS: Zinc Sulfate 220 MG CAP PO SCH (08:04)
[2021-10-31] MEDS: Senokot S 8.6-50 MG TAB PO SCH ×2 (08:04→20:20)
[2021-10-31] MEDS: Mupirocin 2% Ointment 22 GM Tube TOP SCH ×3 (08:04→20:20)
[2021-10-31] MEDS: Benzonatate 100 MG CAP PO SCH ×3 (08:04→20:20)
[2021-10-31] MEDS ORDERED: Polyethylene Glycol 3350 17 GM Packet PO SCH (11:15)
[2021-10-31] MEDS ORDERED: Furosemide 40 MG/4 ML VIAL SLOW IVP SCH ×3 (14:30→19:00)
[2021-10-31] MEDS: HumaLOG 300 UNITS/3 ML VIAL SC PRN ×2 (18:08→21:29)
[2021-10-31] MEDS: Atorvastatin Calcium 40 MG TAB PO SCH (20:19)
[2021-11-01] MEDS: Hydrocortisone Sod Succ/PF 100 mg/2 ml Vial IVP SCH ×4 (00:24→23:17)
[2021-11-01 03:11] LABS: Actual Bicarbonate (HCO3v) 36 mEq/L (22-28); Calcium, Ionized (venous) 1.05 mmol/L (1.16-1.32); Chloride (VBG) 95 mmol/L (98-106); Critical Notified Whom: ZOVAN; Hemoglobin (Hb) 14.6 g/dL (12.6-17.4); Potassium (VBG) 3.41 mmol/L (3.70-5.30); Puncture Site Other Site; Sodium 138.4 mmol/L (133-146)
[2021-11-01 03:14] LABS: #Neutrophils 9.3 10x3/uL (1.5-8.4); %Basophils 0.1 % (0.0-2.0); %Eosinophils 0.2 % (0.0-6.0); %Lymphocytes 4.7 % (18.0-47.0); %Monocytes 8.7 % (0.0-10.0); %Neutrophils 85.7 % (40.0-75.0); Hemoglobin 13.7 g/dL (13.5-17.5); Mean Corpuscular HGB CONC 32.9 g/dL (32.0-36.0); Mean Corpuscular Hemoglobin 29.6 pg (27.0-33.0); Mean Corpuscular Volume 89.8 fl (81.2-95.1); Mean Platelet Volume 9.8 fl (7.4-10.4); Platelet Count 368 10x3/uL (150-450); RBC Distribution Width 15.9 % (11.5-14.5); Red Blood Cell (RBC) Count 4.63 10x6/uL (4.32-5.72); White Blood Cell (WBC) Count 10.9 10x3/uL (3.5-10.5)
[2021-11-01 03:43] LABS: ALT (SGPT) 27 U/L (8-55); AST (SGOT) 28 U/L (5-34); Alkaline Phosphatase 84 U/L (40-110); Anion Gap 17 mmol/L (10-20); BUN (Urea Nitrogen) 32 mg/dL (8.4-25.7); Bilirubin, Total 0.8 mg/dL (0.2-1.2); Calc. Creatinine Clearance 155 mL/min (70-130); Carbon Dioxide 35 mmol/L (23-31); Chloride 94 mmol/L (98-107); Estimated GFR 88; Globulin 3.5 g/dL (2.4-3.5); Glucose 159 mg/dL (83-110); Magnesium 2.3 mg/dL (1.6-2.6); Protein, Total 6.5 g/dL (5.8-8.1); Sodium 143 mmol/L (136-145)
[2021-11-01] MEDS: Furosemide 40 MG/4 ML VIAL SLOW IVP SCH ×3 (03:54→20:58)
[2021-11-01] MEDS: Potassium Chloride 20 MEQ in Premix Bag 1 BAG IVPB SCH ×3 (05:38→10:42)
[2021-11-01] MEDS: Cefepime 2 GM in Sodium Chloride 0.9% 100 ML IVPB SCH ×3 (05:38→21:55)
[2021-11-01] MEDS: guaiFENesin ER 600 MG TAB PO SCH ×2 (08:29→20:58)
[2021-11-01] MEDS: Benzonatate 100 MG CAP PO SCH ×3 (08:29→20:58)
[2021-11-01] MEDS: Cholecalciferol (Vitamin D3) 400 UNITS TAB PO SCH ×3 (08:29→20:58)
[2021-11-01] MEDS: Mupirocin 2% Ointment 22 GM Tube TOP SCH ×3 (08:30→20:58)
[2021-11-01] MEDS: Polyethylene Glycol 3350 17 GM Packet PO SCH (08:30)
[2021-11-01] MEDS: Zinc Sulfate 220 MG CAP PO SCH (08:30)
[2021-11-01] MEDS: Senokot S 8.6-50 MG TAB PO SCH ×2 (08:30→20:57)
[2021-11-01] MEDS: Famotidine/PF 20 mg/2ml Vial SLOW IVP SCH ×2 (08:33→20:55)
[2021-11-01] MEDS: Apixaban 5 MG TAB PO SCH ×2 (08:34→20:57)
[2021-11-01] MEDS: Aspirin 81 mg Enteric Coated Tablet PO SCH (08:34)
[2021-11-01] MEDS ORDERED: Spironolactone 25 MG TAB PO SCH (10:30)
[2021-11-01] MEDS: Atorvastatin Calcium 40 MG TAB PO SCH (20:57)
[2021-11-02 03:25] LABS: #Monocytes 0.6 10x3/uL (0.0-1.1); #Neutrophils 8.6 10x3/uL (1.5-8.4); %Basophils 0.1 % (0.0-2.0); %Lymphocytes 5.3 % (18.0-47.0); %Monocytes 6.2 % (0.0-10.0); %Neutrophils 87.8 % (40.0-75.0); Hemoglobin 13.1 g/dL (13.5-17.5); Mean Corpuscular HGB CONC 32.5 g/dL (32.0-36.0); Mean Corpuscular Volume 89.2 fl (81.2-95.1); Mean Platelet Volume 9.2 fl (7.4-10.4); Platelet Count 330 10x3/uL (150-450); RBC Distribution Width 16.2 % (11.5-14.5); Red Blood Cell (RBC) Count 4.52 10x6/uL (4.32-5.72); White Blood Cell (WBC) Count 9.8 10x3/uL (3.5-10.5)
[2021-11-02 03:45] LABS: ALT (SGPT) 32 U/L (8-55); AST (SGOT) 37 U/L (5-34); Albumin 2.9 g/dL (3.4-4.8); Alkaline Phosphatase 79 U/L (40-110); Anion Gap 18 mmol/L (10-20); BUN (Urea Nitrogen) 36 mg/dL (8.4-25.7); Bilirubin, Total 0.7 mg/dL (0.2-1.2); Calc. Creatinine Clearance 141 mL/min (70-130); Carbon Dioxide 34 mmol/L (23-31); Chloride 94 mmol/L (98-107); Estimated GFR 79; Globulin 3.4 g/dL (2.4-3.5); Glucose 210 mg/dL (83-110); Magnesium 2.4 mg/dL (1.6-2.6); Potassium 3.7 mmol/L (3.5-5.1); Protein, Total 6.3 g/dL (5.8-8.1); Sodium 142 mmol/L (136-145)
[2021-11-02] MEDS: Furosemide 40 MG/4 ML VIAL SLOW IVP SCH ×3 (04:38→20:49)
[2021-11-02] MEDS: Cefepime 2 GM in Sodium Chloride 0.9% 100 ML IVPB SCH ×3 (05:11→22:32)
[2021-11-02] MEDS ORDERED: Iopamidol 300 61% 100 ML VIAL FS ONE (08:00)
[2021-11-02] MEDS: Senokot S 8.6-50 MG TAB PO SCH ×2 (09:03→20:49)
[2021-11-02] MEDS: Spironolactone 25 MG TAB PO SCH (09:03)
[2021-11-02] MEDS: Hydrocortisone Sod Succ/PF 100 mg/2 ml Vial IVP SCH ×3 (09:03→16:17)
[2021-11-02] MEDS: Apixaban 5 MG TAB PO SCH ×2 (09:03→20:49)
[2021-11-02] MEDS: Famotidine/PF 20 mg/2ml Vial SLOW IVP SCH ×2 (09:03→20:49)
[2021-11-02] MEDS: Benzonatate 100 MG CAP PO SCH ×3 (09:04→20:50)
[2021-11-02] MEDS: guaiFENesin ER 600 MG TAB PO SCH ×2 (09:04→20:50)
[2021-11-02] MEDS: Zinc Sulfate 220 MG CAP PO SCH (09:04)
[2021-11-02] MEDS: Cholecalciferol (Vitamin D3) 400 UNITS TAB PO SCH ×3 (09:04→20:50)
[2021-11-02] MEDS: Aspirin 81 mg Enteric Coated Tablet PO SCH (09:04)
[2021-11-02] MEDS: Polyethylene Glycol 3350 17 GM Packet PO SCH (09:04)
[2021-11-02] MEDS: Mupirocin 2% Ointment 22 GM Tube TOP SCH ×3 (09:04→20:50)
[2021-11-02] MEDS ORDERED: Albumin 25% 25 GM/100 ML BOT IVPB SCH (09:45)
[2021-11-02] MEDS: Atorvastatin Calcium 40 MG TAB PO SCH (20:49)
[2021-11-03] MEDS: Hydrocortisone Sod Succ/PF 100 mg/2 ml Vial IVP SCH ×3 (00:37→17:07)
[2021-11-03 03:44] LABS: #Eosinphils 0.1 10x3/uL (0.0-0.5); #Monocytes 0.8 10x3/uL (0.0-1.1); #Neutrophils 8.1 10x3/uL (1.5-8.4); %Basophils 0.1 % (0.0-2.0); %Eosinophils 1.2 % (0.0-6.0); %Lymphocytes 6.3 % (18.0-47.0); %Neutrophils 83.9 % (40.0-75.0); Hemoglobin 12.8 g/dL (13.5-17.5); Mean Corpuscular HGB CONC 33.5 g/dL (32.0-36.0); Mean Corpuscular Hemoglobin 29.7 pg (27.0-33.0); Mean Corpuscular Volume 88.6 fl (81.2-95.1); Mean Platelet Volume 9.2 fl (7.4-10.4); Platelet Count 286 10x3/uL (150-450); RBC Distribution Width 15.8 % (11.5-14.5); Red Blood Cell (RBC) Count 4.31 10x6/uL (4.32-5.72); White Blood Cell (WBC) Count 9.6 10x3/uL (3.5-10.5)
[2021-11-03] MEDS: Furosemide 40 MG/4 ML VIAL SLOW IVP SCH ×3 (03:45→20:51)
[2021-11-03 03:57] LABS: Actual Bicarbonate (HCO3a) 33.9 mEq/L (22-28); Base Excess (BEa) 9.9 mEq/L (-2.0 to +3.0); Calcium, Ionized (arterial) 1.17 mmol/L (1.12-1.30); Carboxyhemoglobin (COHb) 1.2 gm% (0.0-3.0); Critical Notified Whom: ZOVAN; Hemoglobin (Hb) 13.9 g/dL (14.0-18.0); O2 Tension (PaO2), arterial 51.7 mmHg (> 70.0); Puncture Site RRA; pH, Arterial 7.52 (7.35-7.45)
[2021-11-03 04:04] LABS: ALT (SGPT) 31 U/L (8-55); AST (SGOT) 30 U/L (5-34); Albumin 3.2 g/dL (3.4-4.8); Alkaline Phosphatase 78 U/L (40-110); Anion Gap 17 mmol/L (10-20); BUN (Urea Nitrogen) 32 mg/dL (8.4-25.7); Bilirubin, Total 1.1 mg/dL (0.2-1.2); Calc. Creatinine Clearance 158 mL/min (70-130); Calcium 9.2 mg/dL (7.8-10.44); Carbon Dioxide 35 mmol/L (23-31); Chloride 93 mmol/L (98-107); Estimated GFR 90; Glucose 149 mg/dL (83-110); Magnesium 2.4 mg/dL (1.6-2.6); Potassium 3.1 mmol/L (3.5-5.1); Protein, Total 6.2 g/dL (5.8-8.1); Sodium 142 mmol/L (136-145)
[2021-11-03] MEDS: Cefepime 2 GM in Sodium Chloride 0.9% 100 ML IVPB SCH ×3 (05:18→22:38)
[2021-11-03] MEDS ORDERED: Potassium Chloride 20 MEQ TAB PO SCH ×2 (05:30→09:00)
[2021-11-03] MEDS: Senokot S 8.6-50 MG TAB PO SCH ×2 (08:03→20:51)
[2021-11-03] MEDS: Apixaban 5 MG TAB PO SCH ×2 (08:03→20:51)
[2021-11-03] MEDS: Polyethylene Glycol 3350 17 GM Packet PO SCH (08:04)
[2021-11-03] MEDS: Spironolactone 25 MG TAB PO SCH (08:04)
[2021-11-03] MEDS: guaiFENesin ER 600 MG TAB PO SCH ×2 (08:06→20:51)
[2021-11-03] MEDS: Zinc Sulfate 220 MG CAP PO SCH (08:06)
[2021-11-03] MEDS: Benzonatate 100 MG CAP PO SCH ×3 (08:06→20:51)
[2021-11-03] MEDS: Cholecalciferol (Vitamin D3) 400 UNITS TAB PO SCH ×3 (08:06→20:51)
[2021-11-03] MEDS: Famotidine/PF 20 mg/2ml Vial SLOW IVP SCH ×2 (08:07→20:52)
[2021-11-03] MEDS: Aspirin 81 mg Enteric Coated Tablet PO SCH (08:08)
[2021-11-03] MEDS: Mupirocin 2% Ointment 22 GM Tube TOP SCH ×3 (09:17→20:54)
[2021-11-03] MEDS: HumaLOG 300 UNITS/3 ML VIAL SC PRN (12:11)
[2021-11-03] MEDS: Atorvastatin Calcium 40 MG TAB PO SCH (20:51)
[2021-11-04] MEDS: Hydrocortisone Sod Succ/PF 100 mg/2 ml Vial IVP SCH ×3 (01:46→16:51)
[2021-11-04 03:11] LABS: Actual Bicarbonate (HCO3a) 36.1 mEq/L (22-28); Base Excess (BEa) 11.5 mEq/L (-2.0 to +3.0); CO2 Tension 45.9 mmHg (35.0-45.0); Calcium, Ionized (arterial) 1.15 mmol/L (1.12-1.30); Carboxyhemoglobin (COHb) 1.3 gm% (0.0-3.0); Critical Notified Whom: ZOVAN; Hemoglobin (Hb) 14.4 g/dL (14.0-18.0); O2 Tension (PaO2), arterial 45.3 mmHg (> 70.0); Potassium - ABG Lab 3.3 mmol/L (3.70-5.30); Puncture Site RRA; pH, Arterial 7.51 (7.35-7.45)
[2021-11-04 03:15] LABS: ALV-art Gradient 432.075 mmHg (0-20)
[2021-11-04] MEDS: Furosemide 40 MG/4 ML VIAL SLOW IVP SCH ×3 (03:23→20:45)
[2021-11-04 04:38] LABS: Hemoglobin 14.9 g/dL (13.5-17.5); Mean Corpuscular HGB CONC 32.5 g/dL (32.0-36.0); Mean Corpuscular Hemoglobin 29.6 pg (27.0-33.0); Mean Corpuscular Volume 90.9 fl (81.2-95.1); Mean Platelet Volume 11.6 fl (7.4-10.4); Platelet Count 170 10x3/uL (150-450); RBC Distribution Width 16.5 % (11.5-14.5); Red Blood Cell (RBC) Count 5.04 10x6/uL (4.32-5.72); White Blood Cell (WBC) Count 7.8 10x3/uL (3.5-10.5)
[2021-11-04 05:02] LABS: MDiff Complete? YES; Manual Diff?? YES
[2021-11-04 05:13] LABS: ALT (SGPT) 35 U/L (8-55); AST (SGOT) 39 U/L (5-34); Albumin 3.3 g/dL (3.4-4.8); Alkaline Phosphatase 90 U/L (40-110); Anion Gap 24 mmol/L (10-20); BUN (Urea Nitrogen) 33 mg/dL (8.4-25.7); Calc. Creatinine Clearance 151 mL/min (70-130); Calcium 9.8 mg/dL (7.8-10.44); Carbon Dioxide 27 mmol/L (23-31); Chloride 95 mmol/L (98-107); Estimated GFR 86; Globulin 3.6 g/dL (2.4-3.5); Glucose 144 mg/dL (83-110); Magnesium 2.3 mg/dL (1.6-2.6); Potassium 3.9 mmol/L (3.5-5.1); Protein, Total 6.9 g/dL (5.8-8.1); Sodium 142 mmol/L (136-145)
[2021-11-04] MEDS: Cefepime 2 GM in Sodium Chloride 0.9% 100 ML IVPB SCH ×2 (05:24→14:29)
[2021-11-04 05:30] LABS: Band 3 % (5-11); Lymphocytes 1 % (21-51); Monocytes 7 % (0-10); Neutrophil 85 % (42-75); Reactive Lymphocytes 4 % (0-10)
[2021-11-04 05:31] LABS: Anisocytosis SLIGHT = 6-15 cells (100X) (0-5/hpf); Platelet Morphology Comment Appears Adequate
[2021-11-04 05:32] LABS: Stomatocytes SLIGHT = 2-5 cells (100X) (0-1/hpf); Target Cells SLIGHT = 2-5 cells (100X) (0-1/hpf)
[2021-11-04 05:33] LABS: Macrocytosis SLIGHT = 6-15 cells (100X) (0-5/hpf); Microcytosis SLIGHT = 6-15 cells (100X) (0-5/hpf)
[2021-11-04] MEDS ORDERED: Ondansetron PF 4 MG/2 ML Vial IVP PRN (06:37)
[2021-11-04] MEDS: Aspirin 81 mg Enteric Coated Tablet PO SCH (08:29)
[2021-11-04] MEDS: Spironolactone 25 MG TAB PO SCH (08:29)
[2021-11-04] MEDS: Senokot S 8.6-50 MG TAB PO SCH ×2 (08:29→21:18)
[2021-11-04] MEDS: Zinc Sulfate 220 MG CAP PO SCH (08:29)
[2021-11-04] MEDS: Polyethylene Glycol 3350 17 GM Packet PO SCH (08:29)
[2021-11-04] MEDS: Benzonatate 100 MG CAP PO SCH ×4 (08:29→21:17)
[2021-11-04] MEDS: guaiFENesin ER 600 MG TAB PO SCH ×2 (08:29→21:17)
[2021-11-04] MEDS: Famotidine/PF 20 mg/2ml Vial SLOW IVP SCH ×2 (08:30→21:00)
[2021-11-04] MEDS: Apixaban 5 MG TAB PO SCH ×2 (08:30→21:17)
[2021-11-04] MEDS: Mupirocin 2% Ointment 22 GM Tube TOP SCH ×3 (08:30→21:18)
[2021-11-04] MEDS: Cholecalciferol (Vitamin D3) 400 UNITS TAB PO SCH ×3 (08:30→21:17)
[2021-11-04] MEDS ORDERED: Rocuronium Bromide 10 MG/ML (10ML VIAL) ONE (10:00)
[2021-11-04] MEDS ORDERED: Succinylcholine 200 MG/10 ml SYRINGE FS ONE (10:00)
[2021-11-04] MEDS ORDERED: PROPOFOL 200 MG/20 ML VIAL ONE (10:00)
[2021-11-04] MEDS ORDERED: Norepinephrine 8 MG/0.9% NS 250 ML ONE (10:11)
[2021-11-04] MEDS ORDERED: DISCONTINUE PREVIOUS NARCOTIC PAIN MEDICATIONS AND BENZODIAZEPINES FS SCH (10:15)
[2021-11-04] MEDS ORDERED: Lorazepam 2 MG/ML VIAL SLOW IVP PRN (10:15)
[2021-11-04] MEDS ORDERED: PROPOFOL 200 MG/20 ML VIAL IVP SCH (10:15)
[2021-11-04] MEDS ORDERED: Propofol BOLUS 1,000 MG/100 ML VIAL IV PRN (10:15)
[2021-11-04] MEDS ORDERED: Fentanyl BOLUS 250 ML IVPB PRN (10:15)
[2021-11-04] MEDS ORDERED: Morphine 2 MG/ML VIAL SLOW IVP PRN (10:15)
[2021-11-04] MEDS ORDERED: Rocuronium Bromide 50 MG/5 ML VIAL IVP SCH (10:15)
[2021-11-04 12:21] LABS: Actual Bicarbonate (HCO3a) 38.1 mEq/L (22-28); Base Excess (BEa) 9.3 mEq/L (-2.0 to +3.0); Calcium, Ionized (arterial) 1.17 mmol/L (1.12-1.30); Carboxyhemoglobin (COHb) 1.4 gm% (0.0-3.0); Hemoglobin (Hb) 14.3 g/dL (14.0-18.0); O2 Tension (PaO2), arterial 83.1 mmHg (> 70.0); Potassium - ABG Lab 3.5 mmol/L (3.70-5.30); Puncture Site LRA; pH, Arterial 7.34 (7.35-7.45)
[2021-11-04] MEDS: Propofol 1,000 MG/100 ML VIAL IV PRN ×3 (13:54→22:29)
[2021-11-04] MEDS: Atorvastatin Calcium 40 MG TAB PO SCH (21:17)
[2021-11-04] MEDS: HumaLOG 300 UNITS/3 ML VIAL SC PRN (21:44)
[2021-11-05] MEDS: Hydrocortisone Sod Succ/PF 100 mg/2 ml Vial IVP SCH ×2 (00:45→12:33)
[2021-11-05] MEDS: Propofol 1,000 MG/100 ML VIAL IV PRN ×2 (02:53→08:58)
[2021-11-05 03:36] LABS: Actual Bicarbonate (HCO3a) 38.3 mEq/L (22-28); Base Excess (BEa) 10.6 mEq/L (-2.0 to +3.0); CO2 Tension 64.8 mmHg (35.0-45.0); Calcium, Ionized (arterial) 1.17 mmol/L (1.12-1.30); Carboxyhemoglobin (COHb) 1.3 gm% (0.0-3.0); Hemoglobin (Hb) 13.9 g/dL (14.0-18.0); O2 Tension (PaO2), arterial 64.7 mmHg (> 70.0); Potassium - ABG Lab 3.6 mmol/L (3.70-5.30); Puncture Site LRA; pH, Arterial 7.39 (7.35-7.45)
[2021-11-05] MEDS: Furosemide 40 MG/4 ML VIAL SLOW IVP SCH (03:51)
[2021-11-05 04:17] LABS: #Eosinphils 0.1 10x3/uL (0.0-0.5); #Neutrophils 9.2 10x3/uL (1.5-8.4); %Basophils 0.3 % (0.0-2.0); %Eosinophils 1.2 % (0.0-6.0); %Lymphocytes 5.9 % (18.0-47.0); %Monocytes 8.6 % (0.0-10.0); %Neutrophils 82.8 % (40.0-75.0); Hemoglobin 13.1 g/dL (13.5-17.5); Mean Corpuscular HGB CONC 31.2 g/dL (32.0-36.0); Mean Corpuscular Hemoglobin 28.7 pg (27.0-33.0); Mean Corpuscular Volume 92.1 fl (81.2-95.1); Mean Platelet Volume 9.7 fl (7.4-10.4); Platelet Count 205 10x3/uL (150-450); RBC Distribution Width 16.1 % (11.5-14.5); Red Blood Cell (RBC) Count 4.56 10x6/uL (4.32-5.72); White Blood Cell (WBC) Count 11.1 10x3/uL (3.5-10.5)
[2021-11-05 04:43] LABS: ALT (SGPT) 31 U/L (8-55); AST (SGOT) 27 U/L (5-34); Albumin 3.2 g/dL (3.4-4.8); Alkaline Phosphatase 83 U/L (40-110); Anion Gap 19 mmol/L (10-20); BUN (Urea Nitrogen) 62 mg/dL (8.4-25.7); Bilirubin, Total 0.6 mg/dL (0.2-1.2); Calc. Creatinine Clearance 66 mL/min (70-130); Calcium 9.3 mg/dL (7.8-10.44); Carbon Dioxide 35 mmol/L (23-31); Chloride 95 mmol/L (98-107); Estimated GFR 32; Globulin 3.1 g/dL (2.4-3.5); Glucose 221 mg/dL (83-110); Potassium 3.8 mmol/L (3.5-5.1); Protein, Total 6.3 g/dL (5.8-8.1); Sodium 145 mmol/L (136-145)
[2021-11-05] MEDS: HumaLOG 300 UNITS/3 ML VIAL SC PRN ×4 (06:00→22:18)
[2021-11-05] MEDS: fentaNYL Citrate-0.9 % NaCl/PF 100 ML IVPB SCH (08:53)
[2021-11-05] MEDS: guaiFENesin ER 600 MG TAB PO SCH ×2 (08:59→21:38)
[2021-11-05] MEDS: Polyethylene Glycol 3350 17 GM Packet PO SCH (08:59)
[2021-11-05] MEDS: Aspirin 81 mg Enteric Coated Tablet PO SCH (08:59)
[2021-11-05] MEDS: Cholecalciferol (Vitamin D3) 400 UNITS TAB PO SCH ×3 (08:59→21:38)
[2021-11-05] MEDS: Spironolactone 25 MG TAB PO SCH (08:59)
[2021-11-05] MEDS: Zinc Sulfate 220 MG CAP PO SCH (08:59)
[2021-11-05] MEDS: Senokot S 8.6-50 MG TAB PO SCH ×2 (08:59→21:38)
[2021-11-05] MEDS: Famotidine/PF 20 mg/2ml Vial SLOW IVP SCH ×2 (08:59→21:37)
[2021-11-05] MEDS ORDERED: Furosemide 40 MG/4 ML VIAL SLOW IVP SCH (09:00)
[2021-11-05] MEDS: Mupirocin 2% Ointment 22 GM Tube TOP SCH ×3 (09:00→21:39)
[2021-11-05] MEDS: Albumin 25% 25 GM/100 ML BOT IVPB SCH ×2 (09:06→21:38)
[2021-11-05] MEDS: Apixaban 5 MG TAB PO SCH ×2 (09:06→21:38)
[2021-11-05] MEDS ORDERED: Albumin 25% 25 GM/100 ML BOT IVPB SCH (09:30)
[2021-11-05 10:22] LABS: Bilirubin Neg (Negative); Blood, Urine 150 (Negative); Clarity Clear (Clear); Glucose, Urine (Dipstick) Normal (Negative); Ketone, Urine Negative (Negative); Leukocyte Negative (Negative); Nitrite Negative (Negative); Protein, Urine (Dipstick) 15 mg/dl (Neg-Trace); Urobilinogen Normal mg/dL (Less than 2)
[2021-11-05 11:13] LABS: Bacteria/HPF 1+ HPF (None Seen); Squamous Epithelial 0-3 HPF (0-3); WBC/HPF 0-3 HPF (0-3)
[2021-11-05] MEDS: Benzonatate 100 MG CAP PO SCH ×2 (11:58→20:27)
[2021-11-05] MEDS: Midazolam In 0.9 % NaCl/PF 100 ML IVPB SCH (12:35)
[2021-11-05] MEDS: Atorvastatin Calcium 40 MG TAB PO SCH (21:37)
[2021-11-06] MEDS: fentaNYL Citrate-0.9 % NaCl/PF 100 ML IVPB SCH ×2 (00:59→16:17)
[2021-11-06] MEDS: Hydrocortisone Sod Succ/PF 100 mg/2 ml Vial IVP SCH ×2 (00:59→14:47)
[2021-11-06 03:31] LABS: Hemoglobin 11.3 g/dL (13.5-17.5); Mean Corpuscular HGB CONC 32.4 g/dL (32.0-36.0); Mean Corpuscular Hemoglobin 29.2 pg (27.0-33.0); Mean Corpuscular Volume 90.2 fl (81.2-95.1); Mean Platelet Volume 9.9 fl (7.4-10.4); Platelet Count 117 10x3/uL (150-450); RBC Distribution Width 16.4 % (11.5-14.5); Red Blood Cell (RBC) Count 3.87 10x6/uL (4.32-5.72); White Blood Cell (WBC) Count 7.6 10x3/uL (3.5-10.5)
[2021-11-06 03:44] LABS: ALT (SGPT) 21 U/L (8-55); AST (SGOT) 21 U/L (5-34); Albumin 3.5 g/dL (3.4-4.8); Alkaline Phosphatase 66 U/L (40-110); Anion Gap 17 mmol/L (10-20); BUN (Urea Nitrogen) 101 mg/dL (8.4-25.7); Bilirubin, Total 0.6 mg/dL (0.2-1.2); Calc. Creatinine Clearance 53 mL/min (70-130); Calcium 9.5 mg/dL (7.8-10.44); Carbon Dioxide 37 mmol/L (23-31); Chloride 95 mmol/L (98-107); Estimated GFR 25; Globulin 2.5 g/dL (2.4-3.5); Glucose 190 mg/dL (83-110); Potassium 3.3 mmol/L (3.5-5.1); Sodium 146 mmol/L (136-145)
[2021-11-06 03:46] LABS: Base Excess (BEa) 11.8 mEq/L (-2.0 to +3.0); CO2 Tension 64.1 mmHg (35.0-45.0); Calcium, Ionized (arterial) 1.16 mmol/L (1.12-1.30); Carboxyhemoglobin (COHb) 1.3 gm% (0.0-3.0); Hemoglobin (Hb) 12.4 g/dL (14.0-18.0); O2 Tension (PaO2), arterial 46.9 mmHg (> 70.0); Potassium - ABG Lab 3.3 mmol/L (3.70-5.30); Puncture Site LRA
[2021-11-06 03:51] LABS: ALV-art Gradient 372.075 mmHg (0-20)
[2021-11-06] MEDS: HumaLOG 300 UNITS/3 ML VIAL SC PRN ×3 (04:59→21:54)
[2021-11-06] MEDS ORDERED: Potassium Chloride 20 MEQ TAB PO SCH (05:15)
[2021-11-06 07:00] LABS: MDiff Complete? YES
[2021-11-06 07:03] LABS: Platelet Morphology Comment Appears Decreased
[2021-11-06 07:07] LABS: Anisocytosis SLIGHT = 6-15 cells (100X) (0-5/hpf); Hypochromia SLIGHT = 6-15 cells (100X) (0-5/hpf); Stomatocytes SLIGHT = 2-5 cells (100X) (0-1/hpf)
[2021-11-06 07:10] LABS: Band 5 % (5-11); Eosinophils 6 % (0-10); Lymphocytes 5 % (21-51); Monocytes 10 % (0-10); Neutrophil 73 % (42-75); Reactive Lymphocytes 1 % (0-10)
[2021-11-06] MEDS ORDERED: Albuterol Sulfate 2.5 mg/3 ml Neb ONE (07:55)
[2021-11-06] MEDS ORDERED: Lactated Ringer's 1,000 ML IV SCH (08:45)
[2021-11-06] MEDS: Polyethylene Glycol 3350 17 GM Packet PO SCH (09:08)
[2021-11-06] MEDS: Zinc Sulfate 220 MG CAP PO SCH (09:08)
[2021-11-06] MEDS: guaiFENesin ER 600 MG TAB PO SCH ×2 (09:08→21:25)
[2021-11-06] MEDS: Albumin 25% 25 GM/100 ML BOT IVPB SCH (09:08)
[2021-11-06] MEDS: Aspirin 81 mg Enteric Coated Tablet PO SCH (09:08)
[2021-11-06] MEDS: Famotidine/PF 20 mg/2ml Vial SLOW IVP SCH ×2 (09:08→21:23)
[2021-11-06] MEDS: Senokot S 8.6-50 MG TAB PO SCH ×2 (09:08→21:23)
[2021-11-06] MEDS: Cholecalciferol (Vitamin D3) 400 UNITS TAB PO SCH ×3 (09:08→21:25)
[2021-11-06] MEDS: Mupirocin 2% Ointment 22 GM Tube TOP SCH ×3 (09:09→21:24)
[2021-11-06] MEDS: Benzonatate 100 MG CAP PO SCH (09:09)
[2021-11-06] MEDS: Midazolam In 0.9 % NaCl/PF 100 ML IVPB SCH (11:29)
[2021-11-06] MEDS: Acetylcysteine 800 MG/4 ML VIAL INH SCH ×2 (14:20→20:58)
[2021-11-06] MEDS: Lactated Ringer's 1,000 ML IV SCH ×2 (17:07)
[2021-11-06] MEDS: Nystatin 500,000 UNITS/5 ML UDCUP SSW SCH ×2 (17:32→21:23)
[2021-11-06] MEDS ORDERED: Meropenem 1 GM in Sodium Chloride 0.9% 100 ML IVPB SCH (18:00)
[2021-11-06] MEDS ORDERED: Vancomycin 1.5 GRAM/300 ML BAG IVPB SCH (18:30)
[2021-11-06] MEDS ORDERED: Vancomycin 1 GM in Premix Bag 1 BAG IVPB PRN (20:45)
[2021-11-06] MEDS: Atorvastatin Calcium 40 MG TAB PO SCH (21:23)
[2021-11-07] MEDS: Hydrocortisone Sod Succ/PF 100 mg/2 ml Vial IVP SCH ×2 (00:34→12:38)
[2021-11-07] MEDS: Lactated Ringer's 1,000 ML IV SCH ×2 (00:35→12:38)
[2021-11-07] MEDS: Acetylcysteine 800 MG/4 ML VIAL INH SCH ×4 (01:51→21:18)
[2021-11-07] MEDS: Midazolam In 0.9 % NaCl/PF 100 ML IVPB SCH (03:38)
[2021-11-07] MEDS: fentaNYL Citrate-0.9 % NaCl/PF 100 ML IVPB SCH ×2 (03:38→14:54)
[2021-11-07 04:04] LABS: Hemoglobin 10.3 g/dL (13.5-17.5); MDiff Complete? YES; Mean Corpuscular HGB CONC 31.4 g/dL (32.0-36.0); Mean Corpuscular Hemoglobin 29.3 pg (27.0-33.0); Mean Corpuscular Volume 93.2 fl (81.2-95.1); Mean Platelet Volume 10.1 fl (7.4-10.4); Platelet Count 81 10x3/uL (150-450); RBC Distribution Width 16.8 % (11.5-14.5); Red Blood Cell (RBC) Count 3.52 10x6/uL (4.32-5.72); White Blood Cell (WBC) Count 5.7 10x3/uL (3.5-10.5)
[2021-11-07 04:11] LABS: Vancomycin, Random 18.5 ug/mL (See Comment)
[2021-11-07 04:13] LABS: ALT (SGPT) 18 U/L (8-55); AST (SGOT) 17 U/L (5-34); Albumin 3.1 g/dL (3.4-4.8); Alkaline Phosphatase 59 U/L (40-110); Anion Gap 17 mmol/L (10-20); BUN (Urea Nitrogen) 104 mg/dL (8.4-25.7); Bilirubin, Direct 0.4 mg/dL (0.1-0.3); Bilirubin, Total 0.7 mg/dL (0.2-1.2); Calc. Creatinine Clearance 59 mL/min (70-130); Calcium 8.9 mg/dL (7.8-10.44); Carbon Dioxide 36 mmol/L (23-31); Chloride 98 mmol/L (98-107); Estimated GFR 27; Globulin 2.4 g/dL (2.4-3.5); Glucose 212 mg/dL (83-110); Magnesium 2.6 mg/dL (1.6-2.6); Phosphorus 4.6 mg/dL (2.3-4.7); Potassium 3.8 mmol/L (3.5-5.1); Protein, Total 5.5 g/dL (5.8-8.1); Sodium 147 mmol/L (136-145)
[2021-11-07] MEDS: Meropenem 1 GM in Sodium Chloride 0.9% 100 ML IVPB SCH ×2 (04:18→15:22)
[2021-11-07] MEDS: HumaLOG 300 UNITS/3 ML VIAL SC PRN ×2 (05:02→18:24)
[2021-11-07 06:29] LABS: Actual Bicarbonate (HCO3a) 34.1 mEq/L (22-28); Base Excess (BEa) 6.9 mEq/L (-2.0 to +3.0); CO2 Tension 64.6 mmHg (35.0-45.0); Calcium, Ionized (arterial) 1.15 mmol/L (1.12-1.30); Carboxyhemoglobin (COHb) 0.5 gm% (0.0-3.0); Hemoglobin (Hb) 10.3 g/dL (14.0-18.0); O2 Tension (PaO2), arterial 75.5 mmHg (> 70.0); Potassium - ABG Lab 3.7 mmol/L (3.70-5.30); Puncture Site RRA; pH, Arterial 7.34 (7.35-7.45)
[2021-11-07 06:30] LABS: Band 22 % (5-11); Eosinophils 1 % (0-10); Lymphocytes 6 % (21-51); Monocytes 7 % (0-10); Neutrophil 64 % (42-75)
[2021-11-07 06:31] LABS: Anisocytosis SLIGHT = 6-15 cells (100X) (0-5/hpf); Platelet Morphology Comment Appears Decreased
[2021-11-07] MEDS ORDERED: Cefepime 1 GM in Sodium Chloride 0.9% 100 ML IVPB SCH (09:00)
[2021-11-07] MEDS: Nystatin 500,000 UNITS/5 ML UDCUP SSW SCH ×4 (09:33→21:07)
[2021-11-07] MEDS: Zinc Sulfate 220 MG CAP PO SCH (09:33)
[2021-11-07] MEDS: Cholecalciferol (Vitamin D3) 400 UNITS TAB PO SCH ×3 (09:33→20:48)
[2021-11-07] MEDS: Polyethylene Glycol 3350 17 GM Packet PO SCH (09:33)
[2021-11-07] MEDS: guaiFENesin ER 600 MG TAB PO SCH ×2 (09:33→20:48)
[2021-11-07] MEDS: Mupirocin 2% Ointment 22 GM Tube TOP SCH ×3 (09:33→21:07)
[2021-11-07] MEDS: Senokot S 8.6-50 MG TAB PO SCH ×2 (09:33→20:48)
[2021-11-07 11:13] LABS: D-Dimer Test 3.8 mg/L FEU (0.19-0.50); INR-International Normal Ratio 1.1; PTT 23.9 sec (22.0-33.0); Prothrombin Time 11.9 sec (9.5-12.1)
[2021-11-07] MEDS: Famotidine/PF 20 mg/2ml Vial SLOW IVP SCH (11:30)
[2021-11-07] MEDS: Aspirin 81 mg Enteric Coated Tablet PO SCH (12:01)
[2021-11-07] MEDS: Pantoprazole 40 MG VIAL IVP SCH ×2 (12:38→20:48)
[2021-11-07 13:53] LABS: Reference Lab Name LABCORP
[2021-11-07 13:54] LABS: Ref Lab Test Ordered ADAMTS13 W REFLEX
[2021-11-07] MEDS ORDERED: Vancomycin HCl 1 GM in Sodium Chloride 0.9% 250 ML 250 ML IVPB SCH (18:30)
[2021-11-07] MEDS ORDERED: Digoxin 0.5 MG/2 ML AMP SLOW IVP SCH ×2 (18:30→20:30)
[2021-11-07] MEDS: Atorvastatin Calcium 40 MG TAB PO SCH (20:48)
[2021-11-07] MEDS ORDERED: Famotidine/PF 20 mg/2ml Vial SLOW IVP SCH (21:00)
[2021-11-07] MEDS: Lantus 1000 UNITS/10 ML VIAL SC SCH (21:08)
[2021-11-08] MEDS: Lactated Ringer's 1,000 ML IV SCH ×2 (01:20→11:24)
[2021-11-08] MEDS: Hydrocortisone Sod Succ/PF 100 mg/2 ml Vial IVP SCH ×2 (01:22→13:27)
[2021-11-08] MEDS: Meropenem 1 GM in Sodium Chloride 0.9% 100 ML IVPB SCH ×2 (02:14→13:27)
[2021-11-08] MEDS: Acetylcysteine 800 MG/4 ML VIAL INH SCH ×4 (02:14→19:45)
[2021-11-08 04:25] LABS: Hemoglobin 9.9 g/dL (13.5-17.5); Mean Corpuscular HGB CONC 30.8 g/dL (32.0-36.0); Mean Corpuscular Hemoglobin 29.2 pg (27.0-33.0); Mean Corpuscular Volume 94.7 fl (81.2-95.1); Platelet Count 61 10x3/uL (150-450); RBC Distribution Width 16.7 % (11.5-14.5); Red Blood Cell (RBC) Count 3.39 10x6/uL (4.32-5.72); White Blood Cell (WBC) Count 4.7 10x3/uL (3.5-10.5)
[2021-11-08 04:54] LABS: ALT (SGPT) 20 U/L (8-55); AST (SGOT) 23 U/L (5-34); Albumin 2.9 g/dL (3.4-4.8); Alkaline Phosphatase 61 U/L (40-110); Anion Gap 14 mmol/L (10-20); BUN (Urea Nitrogen) 94 mg/dL (8.4-25.7); Bilirubin, Total 0.7 mg/dL (0.2-1.2); Calc. Creatinine Clearance 85 mL/min (70-130); Calcium 9.2 mg/dL (7.8-10.44); Carbon Dioxide 37 mmol/L (23-31); Chloride 100 mmol/L (98-107); Estimated GFR 43; Globulin 2.5 g/dL (2.4-3.5); Glucose 188 mg/dL (83-110); Potassium 4.2 mmol/L (3.5-5.1); Protein, Total 5.4 g/dL (5.8-8.1); Sodium 147 mmol/L (136-145)
[2021-11-08] MEDS: HumaLOG 300 UNITS/3 ML VIAL SC PRN ×3 (05:29→23:29)
[2021-11-08 05:32] LABS: Actual Bicarbonate (HCO3a) 34.9 mEq/L (22-28); Base Excess (BEa) 7.9 mEq/L (-2.0 to +3.0); CO2 Tension 62.4 mmHg (35.0-45.0); Calcium, Ionized (arterial) 1.16 mmol/L (1.12-1.30); Carboxyhemoglobin (COHb) 0.8 gm% (0.0-3.0); Hemoglobin (Hb) 10.7 g/dL (14.0-18.0); O2 Tension (PaO2), arterial 65.9 mmHg (> 70.0); Potassium - ABG Lab 4.1 mmol/L (3.70-5.30); Puncture Site RRA; pH, Arterial 7.37 (7.35-7.45)
[2021-11-08 06:25] LABS: MDiff Complete? YES
[2021-11-08 06:26] LABS: Platelet Morphology Comment Appears Decreased
[2021-11-08 06:36] LABS: Band 8 % (5-11); Eosinophils 4 % (0-10); Lymphocytes 8 % (21-51); Monocytes 11 % (0-10); Neutrophil 68 % (42-75); Reactive Lymphocytes 1 % (0-10)
[2021-11-08] MEDS: Senokot S 8.6-50 MG TAB PO SCH ×2 (08:10→21:10)
[2021-11-08] MEDS: Folic Acid 1 MG TAB PO SCH (08:10)
[2021-11-08] MEDS: Polyethylene Glycol 3350 17 GM Packet PO SCH (08:10)
[2021-11-08] MEDS: Zinc Sulfate 220 MG CAP PO SCH (08:10)
[2021-11-08] MEDS: Digoxin 0.125 MG TAB PO SCH (08:10)
[2021-11-08] MEDS: Cholecalciferol (Vitamin D3) 400 UNITS TAB PO SCH ×3 (08:10→21:09)
[2021-11-08] MEDS: Pantoprazole 40 MG VIAL IVP SCH ×2 (08:10→21:11)
[2021-11-08] MEDS: Mupirocin 2% Ointment 22 GM Tube TOP SCH ×3 (08:10→22:43)
[2021-11-08] MEDS: guaiFENesin ER 600 MG TAB PO SCH ×2 (08:10→21:10)
[2021-11-08] MEDS: Nystatin 500,000 UNITS/5 ML UDCUP SSW SCH ×4 (08:12→21:11)
[2021-11-08] MEDS ORDERED: Bisacodyl 10 MG SUPP PR PRN (10:15)
[2021-11-08] MEDS ORDERED: Bisacodyl 10 MG SUPP PR SCH (10:15)
[2021-11-08] MEDS: fentaNYL Citrate-0.9 % NaCl/PF 100 ML IVPB SCH (12:27)
[2021-11-08] MEDS ORDERED: Meropenem 1 GM VIAL ONE (13:19)
[2021-11-08] MEDS: ADMIXTURE FEE IVPB SCH (16:56)
[2021-11-08] MEDS: SODIUM CHLORIDE IVPB SCH (16:56)
[2021-11-08] MEDS: ACYCLOVIR SODIUM IVPB SCH (16:56)
[2021-11-08] MEDS ORDERED: Pantoprazole 40 MG VIAL ONE (21:09)
[2021-11-08] MEDS: Atorvastatin Calcium 40 MG TAB PO SCH (21:10)
[2021-11-08] MEDS: CEFIDEROCOL IVPB SCH (22:43)
[2021-11-08] MEDS: Lantus 1000 UNITS/10 ML VIAL SC SCH (22:43)
[2021-11-08] MEDS: SODIUM CHLORIDE 0.9% IVPB SCH (22:43)
[2021-11-09] MEDS: Hydrocortisone Sod Succ/PF 100 mg/2 ml Vial IVP SCH ×2 (01:26→12:58)
[2021-11-09] MEDS: Meropenem 1 GM in Sodium Chloride 0.9% 100 ML IVPB SCH ×3 (01:26→17:02)
[2021-11-09] MEDS: Acetylcysteine 800 MG/4 ML VIAL INH SCH ×4 (01:50→18:50)
[2021-11-09] MEDS: Lactated Ringer's 1,000 ML IV SCH ×2 (01:55→08:08)
[2021-11-09] MEDS: SODIUM CHLORIDE IVPB SCH ×2 (04:00→15:48)
[2021-11-09] MEDS: ACYCLOVIR SODIUM IVPB SCH ×2 (04:00→15:48)
[2021-11-09] MEDS: ADMIXTURE FEE IVPB SCH ×2 (04:00→15:48)
[2021-11-09 04:02] LABS: Hemoglobin 9.2 g/dL (13.5-17.5); Mean Corpuscular Hemoglobin 29.5 pg (27.0-33.0); Mean Corpuscular Volume 95.2 fl (81.2-95.1); Mean Platelet Volume 9.9 fl (7.4-10.4); Platelet Count 70 10x3/uL (150-450); RBC Distribution Width 16.9 % (11.5-14.5); Red Blood Cell (RBC) Count 3.12 10x6/uL (4.32-5.72); White Blood Cell (WBC) Count 4.7 10x3/uL (3.5-10.5)
[2021-11-09 04:19] LABS: ALT (SGPT) 22 U/L (8-55); AST (SGOT) 26 U/L (5-34); Albumin 2.8 g/dL (3.4-4.8); Alkaline Phosphatase 60 U/L (40-110); BUN (Urea Nitrogen) 80 mg/dL (8.4-25.7); Bilirubin, Total 0.5 mg/dL (0.2-1.2); Calc. Creatinine Clearance 119 mL/min (70-130); Calcium 9.6 mg/dL (7.8-10.44); Estimated GFR 65; Globulin 2.5 g/dL (2.4-3.5); Glucose 150 mg/dL (83-110); Protein, Total 5.3 g/dL (5.8-8.1)
[2021-11-09 04:27] LABS: Anion Gap 15 mmol/L (10-20); Carbon Dioxide 37 mmol/L (23-31); Chloride 102 mmol/L (98-107); Potassium 4.4 mmol/L (3.5-5.1); Sodium 150 mmol/L (136-145)
[2021-11-09 05:18] LABS: MDiff Complete? YES
[2021-11-09 05:19] LABS: Platelet Morphology Comment Appears Decreased
[2021-11-09 05:32] LABS: Band 13 % (5-11); Eosinophils 5 % (0-10); Lymphocytes 10 % (21-51); Metamyelocyte 3 % (0-0); Monocytes 8 % (0-10); Neutrophil 60 % (42-75)
[2021-11-09] MEDS: CEFIDEROCOL IVPB SCH (05:33)
[2021-11-09] MEDS: SODIUM CHLORIDE 0.9% IVPB SCH (05:33)
[2021-11-09] MEDS: Cholecalciferol (Vitamin D3) 400 UNITS TAB PO SCH ×3 (08:06→20:36)
[2021-11-09] MEDS: Digoxin 0.125 MG TAB PO SCH (08:06)
[2021-11-09] MEDS: Senokot S 8.6-50 MG TAB PO SCH ×2 (08:06→20:38)
[2021-11-09] MEDS: Polyethylene Glycol 3350 17 GM Packet PO SCH (08:06)
[2021-11-09] MEDS: Folic Acid 1 MG TAB PO SCH (08:06)
[2021-11-09] MEDS: Nystatin 500,000 UNITS/5 ML UDCUP SSW SCH ×4 (08:06→20:37)
[2021-11-09] MEDS: Pantoprazole 40 MG VIAL IVP SCH ×2 (08:06→20:37)
[2021-11-09] MEDS: guaiFENesin ER 600 MG TAB PO SCH ×2 (08:07→20:37)
[2021-11-09] MEDS: Zinc Sulfate 220 MG CAP PO SCH (08:07)
[2021-11-09] MEDS: Mupirocin 2% Ointment 22 GM Tube TOP SCH ×3 (08:09→22:03)
[2021-11-09 08:33] LABS: Actual Bicarbonate (HCO3a) 40.3 mEq/L (22-28); Base Excess (BEa) 12.3 mEq/L (-2.0 to +3.0); CO2 Tension 69.1 mmHg (35.0-45.0); Calcium, Ionized (arterial) 1.28 mmol/L (1.12-1.30); Carboxyhemoglobin (COHb) 1.4 gm% (0.0-3.0); Hemoglobin (Hb) 13.1 g/dL (14.0-18.0); O2 Tension (PaO2), arterial 45.4 mmHg (> 70.0); Potassium - ABG Lab 4.3 mmol/L (3.70-5.30); Puncture Site LRA; pH, Arterial 7.38 (7.35-7.45)
[2021-11-09 08:38] LABS: ALV-art Gradient 474.275 mmHg (0-20)
[2021-11-09] MEDS ORDERED: 1/2 NS w/KCL 20 mEq 1,000 ML IV SCH (08:45)
[2021-11-09] MEDS: HumaLOG 300 UNITS/3 ML VIAL SC PRN ×3 (11:49→21:50)
[2021-11-09 12:13] LABS: Digoxin 0.48 ng/mL (0.8-2.0)
[2021-11-09] MEDS ORDERED: Furosemide 40 MG/4 ML VIAL ONE (12:49)
[2021-11-09] MEDS ORDERED: Furosemide 40 MG/4 ML VIAL SLOW IVP SCH (13:30)
[2021-11-09] MEDS ORDERED: Minocycline HCl 50 MG CAP PER TUBE SCH (13:30)
[2021-11-09] MEDS ORDERED: Diltiazem 125 MG in Sodium Chloride 0.9% 100 ML IVPB SCH (16:45)
[2021-11-09] MEDS: Apixaban 5 MG TAB PO SCH (20:36)
[2021-11-09] MEDS: Atorvastatin Calcium 40 MG TAB PO SCH (20:36)
[2021-11-09] MEDS: Polyethylene Glycol 3350 17 GM Packet PER TUBE SCH (20:37)
[2021-11-09] MEDS: Lantus 1000 UNITS/10 ML VIAL SC SCH (21:49)
[2021-11-10] MEDS: Hydrocortisone Sod Succ/PF 100 mg/2 ml Vial IVP SCH (00:32)
[2021-11-10] MEDS: Acetylcysteine 800 MG/4 ML VIAL INH SCH ×2 (00:45→08:19)
[2021-11-10] MEDS: Meropenem 1 GM in Sodium Chloride 0.9% 100 ML IVPB SCH ×3 (01:19→17:11)
[2021-11-10] MEDS ORDERED: Minocycline HCl 50 MG CAP PER TUBE SCH (01:30)
[2021-11-10 04:32] LABS: ALT (SGPT) 23 U/L (8-55); AST (SGOT) 36 U/L (5-34); Albumin 2.9 g/dL (3.4-4.8); Alkaline Phosphatase 63 U/L (40-110); BUN (Urea Nitrogen) 62 mg/dL (8.4-25.7); Bilirubin, Total 0.4 mg/dL (0.2-1.2); Calc. Creatinine Clearance 122 mL/min (70-130); Calcium 9.8 mg/dL (7.8-10.44); Estimated GFR 66; Globulin 2.7 g/dL (2.4-3.5); Glucose 181 mg/dL (83-110); Hemoglobin 10.5 g/dL (13.5-17.5); Mean Corpuscular HGB CONC 31.7 g/dL (32.0-36.0); Mean Corpuscular Hemoglobin 29.2 pg (27.0-33.0); Mean Corpuscular Volume 91.9 fl (81.2-95.1); Mean Platelet Volume 11.1 fl (7.4-10.4); Protein, Total 5.6 g/dL (5.8-8.1); RBC Distribution Width 16.8 % (11.5-14.5); White Blood Cell (WBC) Count 5.4 10x3/uL (3.5-10.5)
[2021-11-10 04:33] LABS: Platelet Count 86 10x3/uL (150-450)
[2021-11-10 04:39] LABS: Anion Gap 15 mmol/L (10-20); Carbon Dioxide 38 mmol/L (23-31); Chloride 95 mmol/L (98-107); Potassium 4.2 mmol/L (3.5-5.1); Sodium 144 mmol/L (136-145)
[2021-11-10] MEDS: ACYCLOVIR SODIUM IVPB SCH ×2 (04:39→16:05)
[2021-11-10] MEDS: SODIUM CHLORIDE IVPB SCH ×2 (04:39→16:05)
[2021-11-10] MEDS: ADMIXTURE FEE IVPB SCH ×2 (04:39→16:05)
[2021-11-10] MEDS: HumaLOG 300 UNITS/3 ML VIAL SC PRN ×2 (04:41→16:03)
[2021-11-10 05:17] LABS: MDiff Complete? YES
[2021-11-10 05:20] LABS: Band 21 % (5-11); Eosinophils 1 % (0-10); Lymphocytes 7 % (21-51); Monocytes 7 % (0-10); Myelocyte 2 % (0-0); Neutrophil 60 % (42-75); Reactive Lymphocytes 2 % (0-10)
[2021-11-10 05:21] LABS: Platelet Morphology Comment Appears Decreased; RBC Morphology Normal
[2021-11-10] MEDS: fentaNYL Citrate-0.9 % NaCl/PF 100 ML IVPB SCH (05:22)
[2021-11-10 05:34] LABS: Actual Bicarbonate (HCO3a) 39.2 mEq/L (22-28); Base Excess (BEa) 13.6 mEq/L (-2.0 to +3.0); CO2 Tension 53.2 mmHg (35.0-45.0); Calcium, Ionized (arterial) 1.19 mmol/L (1.12-1.30); Carboxyhemoglobin (COHb) 1.5 gm% (0.0-3.0); Hemoglobin (Hb) 13.2 g/dL (14.0-18.0); O2 Tension (PaO2), arterial 47.9 mmHg (> 70.0); Potassium - ABG Lab 4.1 mmol/L (3.70-5.30); Puncture Site RRA; pH, Arterial 7.49 (7.35-7.45)
[2021-11-10] MEDS: Furosemide 40 MG/4 ML VIAL SLOW IVP SCH ×2 (08:33→14:06)
[2021-11-10] MEDS ORDERED: Furosemide 40 MG/4 ML VIAL SLOW IVP SCH (09:00)
[2021-11-10] MEDS: Polyethylene Glycol 3350 17 GM Packet PO SCH (09:08)
[2021-11-10] MEDS: Apixaban 5 MG TAB PO SCH ×2 (09:09→20:39)
[2021-11-10] MEDS: Senokot S 8.6-50 MG TAB PO SCH ×2 (09:09→20:39)
[2021-11-10] MEDS: Zinc Sulfate 220 MG CAP PO SCH (09:09)
[2021-11-10] MEDS: Pantoprazole 40 MG VIAL IVP SCH ×2 (09:09→20:38)
[2021-11-10] MEDS: Cholecalciferol (Vitamin D3) 400 UNITS TAB PO SCH ×3 (09:09→20:39)
[2021-11-10] MEDS: Digoxin 0.125 MG TAB PO SCH (09:09)
[2021-11-10] MEDS: Folic Acid 1 MG TAB PO SCH (09:10)
[2021-11-10] MEDS: Polyethylene Glycol 3350 17 GM Packet PER TUBE SCH ×2 (09:25→20:40)
[2021-11-10] MEDS: Mupirocin 2% Ointment 22 GM Tube TOP SCH ×3 (10:09→20:41)
[2021-11-10] MEDS: Nystatin 500,000 UNITS/5 ML UDCUP SSW SCH ×4 (11:46→20:39)
[2021-11-10] MEDS ORDERED: IN SODIUM CHLORIDE 0.9% IV SCH (13:30)
[2021-11-10] MEDS: Atorvastatin Calcium 40 MG TAB PO SCH (20:38)
[2021-11-10] MEDS: Norepinephrine 8 MG/0.9% NS 250 ML IVPB SCH (21:39)
[2021-11-10] MEDS: Lantus 1000 UNITS/10 ML VIAL SC SCH (21:40)
[2021-11-11] MEDS: Meropenem 1 GM in Sodium Chloride 0.9% 100 ML IVPB SCH ×2 (03:21→10:10)
[2021-11-11 03:55] LABS: Mean Corpuscular HGB CONC 32.6 g/dL (32.0-36.0); Mean Corpuscular Hemoglobin 29.6 pg (27.0-33.0); Mean Corpuscular Volume 90.6 fl (81.2-95.1); Platelet Count 118 10x3/uL (150-450); RBC Distribution Width 17.2 % (11.5-14.5); Red Blood Cell (RBC) Count 3.72 10x6/uL (4.32-5.72); White Blood Cell (WBC) Count 7.9 10x3/uL (3.5-10.5)
[2021-11-11 04:06] LABS: Digoxin 0.41 ng/mL (0.8-2.0)
[2021-11-11 04:11] LABS: MDiff Complete? YES
[2021-11-11 04:16] LABS: Band 17 % (5-11); Eosinophils 8 % (0-10); Lymphocytes 17 % (21-51); Monocytes 6 % (0-10); Myelocyte 1 % (0-0); Neutrophil 48 % (42-75); Platelet Morphology Comment Appears Decreased; Reactive Lymphocytes 3 % (0-10)
[2021-11-11 04:17] LABS: RBC Morphology Normal
[2021-11-11] MEDS: ADMIXTURE FEE IVPB SCH ×2 (05:16→15:29)
[2021-11-11] MEDS: ACYCLOVIR SODIUM IVPB SCH (05:16)
[2021-11-11] MEDS: SODIUM CHLORIDE IVPB SCH (05:16)
[2021-11-11] MEDS: Midazolam In 0.9 % NaCl/PF 100 ML IVPB SCH (08:32)
[2021-11-11] MEDS: fentaNYL Citrate-0.9 % NaCl/PF 100 ML IVPB SCH (08:32)
[2021-11-11] MEDS: Pantoprazole 40 MG VIAL IVP SCH ×2 (08:35→21:52)
[2021-11-11] MEDS: Folic Acid 1 MG TAB PO SCH (08:36)
[2021-11-11] MEDS: Polyethylene Glycol 3350 17 GM Packet PO SCH (08:36)
[2021-11-11] MEDS: Apixaban 5 MG TAB PO SCH ×2 (08:36→21:53)
[2021-11-11] MEDS: Digoxin 0.125 MG TAB PO SCH (08:36)
[2021-11-11] MEDS: Senokot S 8.6-50 MG TAB PO SCH ×2 (08:36→21:53)
[2021-11-11] MEDS: Cholecalciferol (Vitamin D3) 400 UNITS TAB PO SCH ×3 (08:37→21:53)
[2021-11-11] MEDS: Mupirocin 2% Ointment 22 GM Tube TOP SCH ×3 (08:40→21:26)
[2021-11-11] MEDS: Polyethylene Glycol 3350 17 GM Packet PER TUBE SCH ×2 (08:42→21:52)
[2021-11-11] MEDS: Nystatin 500,000 UNITS/5 ML UDCUP SSW SCH ×4 (08:43→21:52)
[2021-11-11] MEDS: Zinc Sulfate 220 MG CAP PO SCH (08:44)
[2021-11-11] MEDS: HumaLOG 300 UNITS/3 ML VIAL SC PRN (10:26)
[2021-11-11] MEDS: acetaZOLAMIDE Sodium 500 mg Vial IVP SCH ×2 (10:43→21:52)
[2021-11-11] MEDS ORDERED: ADMIXTURE FEE IVPB SCH (14:00)
[2021-11-11] MEDS ORDERED: SODIUM CHLORIDE IVPB SCH (14:00)
[2021-11-11] MEDS ORDERED: ACYCLOVIR SODIUM IVPB SCH (14:00)
[2021-11-11] MEDS: DEXTROSE IVPB SCH (15:29)
[2021-11-11] MEDS: AMBISOME IVPB SCH (15:29)
[2021-11-11] MEDS: WATER IVPB SCH ×2 (15:29→21:43)
[2021-11-11] MEDS ORDERED: Oxymetazoline HCl 0.05% ( 15 ML ) NASAL SCH (20:30)
[2021-11-11] MEDS: DEXTROSE 5% IVPB SCH (21:43)
[2021-11-11] MEDS: SULFAMETHOXAZOLE IVPB SCH (21:43)
[2021-11-11] MEDS: TRIMETHOPRIM IVPB SCH (21:43)
[2021-11-11] MEDS: Norepinephrine 8 MG/0.9% NS 250 ML IVPB SCH (21:49)
[2021-11-11] MEDS: Atorvastatin Calcium 40 MG TAB PO SCH (21:52)
[2021-11-11] MEDS: Lantus 1000 UNITS/10 ML VIAL SC SCH (21:54)
[2021-11-11] MEDS ORDERED: Sterile Water 10 ML ONE (21:56)
[2021-11-12] MEDS: SULFAMETHOXAZOLE IVPB SCH ×4 (02:54→21:04)
[2021-11-12] MEDS: DEXTROSE 5% IVPB SCH ×4 (02:54→21:04)
[2021-11-12] MEDS: TRIMETHOPRIM IVPB SCH ×4 (02:54→21:04)
[2021-11-12] MEDS: WATER IVPB SCH ×5 (02:54→21:04)
[2021-11-12] MEDS: fentaNYL Citrate-0.9 % NaCl/PF 100 ML IVPB SCH ×2 (02:54→20:33)
[2021-11-12 04:10] LABS: Hemoglobin 10.4 g/dL (13.5-17.5); Mean Corpuscular Hemoglobin 29.1 pg (27.0-33.0); Mean Platelet Volume 10.3 fl (7.4-10.4); Platelet Count 126 10x3/uL (150-450); RBC Distribution Width 17.1 % (11.5-14.5); Red Blood Cell (RBC) Count 3.57 10x6/uL (4.32-5.72); White Blood Cell (WBC) Count 8.3 10x3/uL (3.5-10.5)
[2021-11-12 04:18] LABS: MDiff Complete? YES
[2021-11-12 04:24] LABS: Digoxin 0.63 ng/mL (0.8-2.0)
[2021-11-12 04:54] LABS: Band 29 % (5-11); Eosinophils 5 % (0-10); Lymphocytes 12 % (21-51); Metamyelocyte 1 % (0-0); Monocytes 8 % (0-10); Neutrophil 45 % (42-75)
[2021-11-12 04:55] LABS: Platelet Morphology Comment Appears Decreased; RBC Morphology Normal
[2021-11-12 07:06] LABS: BUN (Urea Nitrogen) 33 mg/dL (8.4-25.7); Calc. Creatinine Clearance 115 mL/min (70-130); Calcium 8.8 mg/dL (7.8-10.44); Estimated GFR 61; Glucose 111 mg/dL (83-110); Magnesium 1.9 mg/dL (1.6-2.6)
[2021-11-12 07:13] LABS: Anion Gap 15 mmol/L (10-20); Carbon Dioxide 34 mmol/L (23-31); Chloride 93 mmol/L (98-107); Potassium 4.8 mmol/L (3.5-5.1); Sodium 137 mmol/L (136-145)
[2021-11-12 07:58] LABS: Actual Bicarbonate (HCO3a) 32.3 mEq/L (22-28); CO2 Tension 55.7 mmHg (35.0-45.0); Calcium, Ionized (arterial) 1.13 mmol/L (1.12-1.30); Carboxyhemoglobin (COHb) 1.5 gm% (0.0-3.0); O2 Tension (PaO2), arterial 57.2 mmHg (> 70.0); Potassium - ABG Lab 4.5 mmol/L (3.70-5.30); Puncture Site LRA; pH, Arterial 7.38 (7.35-7.45)
[2021-11-12] MEDS: Senokot S 8.6-50 MG TAB PO SCH ×2 (08:16→21:04)
[2021-11-12] MEDS: Pantoprazole 40 MG VIAL IVP SCH ×2 (08:16→21:01)
[2021-11-12] MEDS: Folic Acid 1 MG TAB PO SCH (08:16)
[2021-11-12] MEDS: Cholecalciferol (Vitamin D3) 400 UNITS TAB PO SCH ×3 (08:16→21:04)
[2021-11-12] MEDS: Digoxin 0.125 MG TAB PO SCH (08:16)
[2021-11-12] MEDS: Zinc Sulfate 220 MG CAP PO SCH (08:16)
[2021-11-12] MEDS: Polyethylene Glycol 3350 17 GM Packet PER TUBE SCH ×2 (08:17→21:12)
[2021-11-12] MEDS: Nystatin 500,000 UNITS/5 ML UDCUP SSW SCH ×4 (08:18→21:06)
[2021-11-12] MEDS ORDERED: Sterile Water 10 ML ONE (09:55)
[2021-11-12] MEDS ORDERED: EPINEPHrine 1 MG/10 ML Abboject SYRINGE ONE (09:58)
[2021-11-12] MEDS ORDERED: Atropine Sulfate 1 mg/10 ml Syringe ONE (10:05)
[2021-11-12 11:27] LABS: ALV-art Gradient 514.875 mmHg (0-20)
[2021-11-12] MEDS: acetaZOLAMIDE Sodium 500 mg Vial IVP SCH (11:30)
[2021-11-12] MEDS: Mupirocin 2% Ointment 22 GM Tube TOP SCH ×3 (11:49→21:05)
[2021-11-12] MEDS: Apixaban 5 MG TAB PO SCH ×2 (11:49→21:04)
[2021-11-12] MEDS: DEXTROSE IVPB SCH (15:27)
[2021-11-12] MEDS: AMBISOME IVPB SCH (15:27)
[2021-11-12] MEDS: ADMIXTURE FEE IVPB SCH (15:27)
[2021-11-12] MEDS: Admixture Fee 1 EACH in Dextrose 5% in Water 10 ML FS SCH ×2 (15:28→17:52)
[2021-11-12] MEDS: Acetaminophen 325 MG TAB PO PRN (15:44)
[2021-11-12] MEDS: Atorvastatin Calcium 40 MG TAB PO SCH (21:04)
[2021-11-12] MEDS: Lantus 1000 UNITS/10 ML VIAL SC SCH (21:05)
[2021-11-12] MEDS: Norepinephrine 8 MG/0.9% NS 250 ML IVPB SCH (23:00)
[2021-11-13] MEDS: acetaZOLAMIDE Sodium 500 mg Vial IVP SCH (01:01)
[2021-11-13] MEDS ORDERED: Sterile Water 10 ML ONE (01:04)
[2021-11-13] MEDS: TRIMETHOPRIM IVPB SCH ×4 (03:00→20:24)
[2021-11-13] MEDS: WATER IVPB SCH ×4 (03:00→20:24)
[2021-11-13] MEDS: SULFAMETHOXAZOLE IVPB SCH ×4 (03:00→20:24)
[2021-11-13] MEDS: DEXTROSE 5% IVPB SCH ×4 (03:00→20:24)
[2021-11-13 04:34] LABS: Hemoglobin 9.3 g/dL (13.5-17.5); Mean Corpuscular HGB CONC 32.2 g/dL (32.0-36.0); Mean Corpuscular Hemoglobin 29.5 pg (27.0-33.0); Mean Corpuscular Volume 91.7 fl (81.2-95.1); Mean Platelet Volume 10.7 fl (7.4-10.4); Platelet Count 134 10x3/uL (150-450); RBC Distribution Width 17.2 % (11.5-14.5); Red Blood Cell (RBC) Count 3.15 10x6/uL (4.32-5.72); White Blood Cell (WBC) Count 7.4 10x3/uL (3.5-10.5)
[2021-11-13 04:36] LABS: Digoxin 0.85 ng/mL (0.8-2.0)
[2021-11-13 04:38] LABS: ALT (SGPT) 26 U/L (8-55); AST (SGOT) 44 U/L (5-34); Albumin 2.5 g/dL (3.4-4.8); Alkaline Phosphatase 75 U/L (40-110); Anion Gap 15 mmol/L (10-20); BUN (Urea Nitrogen) 41 mg/dL (8.4-25.7); Bilirubin, Total 0.4 mg/dL (0.2-1.2); Calc. Creatinine Clearance 88 mL/min (70-130); Calcium 8.4 mg/dL (7.8-10.44); Carbon Dioxide 33 mmol/L (23-31); Chloride 90 mmol/L (98-107); Estimated GFR 45; Globulin 2.7 g/dL (2.4-3.5); Glucose 150 mg/dL (83-110); Magnesium 2.1 mg/dL (1.6-2.6); Potassium 4.7 mmol/L (3.5-5.1); Protein, Total 5.2 g/dL (5.8-8.1); Sodium 133 mmol/L (136-145)
[2021-11-13 04:55] LABS: ALV-art Gradient 565.375 mmHg (0-20); Actual Bicarbonate (HCO3a) 34.6 mEq/L (22-28); Base Excess (BEa) 6.9 mEq/L (-2.0 to +3.0); CO2 Tension 67.7 mmHg (35.0-45.0); Calcium, Ionized (arterial) 1.12 mmol/L (1.12-1.30); Carboxyhemoglobin (COHb) 1.6 gm% (0.0-3.0); Critical Notified By: CP.PH; Hemoglobin (Hb) 10.6 g/dL (14.0-18.0); Potassium - ABG Lab 4.5 mmol/L (3.70-5.30); Puncture Site RRA; RapidComm Collect By CP.PH; pH, Arterial 7.33 (7.35-7.45)
[2021-11-13 05:05] LABS: MDiff Complete? YES
[2021-11-13 05:08] LABS: Band 11 % (5-11); Eosinophils 1 % (0-10); Lymphocytes 18 % (21-51); Monocytes 9 % (0-10); Neutrophil 61 % (42-75)
[2021-11-13 05:10] LABS: Platelet Morphology Comment Appears Adequate; Polychromasia SLIGHT = 2-3 cells (100X) (0-2/hpf)
[2021-11-13] MEDS: Cholecalciferol (Vitamin D3) 400 UNITS TAB PO SCH ×3 (08:38→20:24)
[2021-11-13] MEDS: Nystatin 500,000 UNITS/5 ML UDCUP SSW SCH ×4 (08:38→20:27)
[2021-11-13] MEDS: Zinc Sulfate 220 MG CAP PO SCH (08:38)
[2021-11-13] MEDS: Digoxin 0.125 MG TAB PO SCH (08:38)
[2021-11-13] MEDS: Apixaban 5 MG TAB PO SCH ×2 (08:38→20:24)
[2021-11-13] MEDS: Polyethylene Glycol 3350 17 GM Packet PER TUBE SCH ×2 (08:38→20:25)
[2021-11-13] MEDS: Folic Acid 1 MG TAB PO SCH (08:38)
[2021-11-13] MEDS: Pantoprazole 40 MG VIAL IVP SCH ×2 (08:38→20:25)
[2021-11-13] MEDS: Senokot S 8.6-50 MG TAB PO SCH ×2 (08:38→20:24)
[2021-11-13] MEDS: Furosemide 40 MG/4 ML VIAL SLOW IVP SCH ×2 (09:10→17:34)
[2021-11-13] MEDS: Midazolam In 0.9 % NaCl/PF 100 ML IVPB SCH (10:40)
[2021-11-13] MEDS: Norepinephrine 8 MG/0.9% NS 250 ML IVPB SCH (12:04)
[2021-11-13] MEDS: Mupirocin 2% Ointment 22 GM Tube TOP SCH ×3 (13:47→20:25)
[2021-11-13] MEDS: fentaNYL Citrate-0.9 % NaCl/PF 100 ML IVPB SCH (13:54)
[2021-11-13] MEDS: Admixture Fee 1 EACH in Dextrose 5% in Water 10 ML FS SCH ×2 (17:34)
[2021-11-13] MEDS: Lantus 1000 UNITS/10 ML VIAL SC SCH (20:24)
[2021-11-13] MEDS: Atorvastatin Calcium 40 MG TAB PO SCH (20:24)
[2021-11-13 22:36] LABS: HSV 1 DNA, Nose Positive (Negative); HSV 2 DNA, Nose Negative (Negative)
[2021-11-14] MEDS: DEXTROSE 5% IVPB SCH ×4 (02:08→21:09)
[2021-11-14] MEDS: TRIMETHOPRIM IVPB SCH ×4 (02:08→21:09)
[2021-11-14] MEDS: WATER IVPB SCH ×4 (02:08→21:09)
[2021-11-14] MEDS: fentaNYL Citrate-0.9 % NaCl/PF 100 ML IVPB SCH ×2 (02:08→13:27)
[2021-11-14] MEDS: SULFAMETHOXAZOLE IVPB SCH ×4 (02:08→21:09)
[2021-11-14] MEDS: Norepinephrine 8 MG/0.9% NS 250 ML IVPB SCH ×2 (02:59→16:02)
[2021-11-14 04:04] LABS: Actual Bicarbonate (HCO3a) 32.5 mEq/L (22-28); Base Excess (BEa) 5.5 mEq/L (-2.0 to +3.0); Calcium, Ionized (arterial) 1.12 mmol/L (1.12-1.30); Carboxyhemoglobin (COHb) 1.4 gm% (0.0-3.0); Hemoglobin (Hb) 9.7 g/dL (14.0-18.0); O2 Tension (PaO2), arterial 61.2 mmHg (> 70.0); Potassium - ABG Lab 4.5 mmol/L (3.70-5.30); Puncture Site RRA; pH, Arterial 7.34 (7.35-7.45)
[2021-11-14 04:27] LABS: ALT (SGPT) 26 U/L (8-55); AST (SGOT) 41 U/L (5-34); Albumin 2.5 g/dL (3.4-4.8); Alkaline Phosphatase 83 U/L (40-110); Anion Gap 15 mmol/L (10-20); BUN (Urea Nitrogen) 44 mg/dL (8.4-25.7); Bilirubin, Total 0.3 mg/dL (0.2-1.2); Calc. Creatinine Clearance 74 mL/min (70-130); Calcium 8.3 mg/dL (7.8-10.44); Carbon Dioxide 32 mmol/L (23-31); Chloride 88 mmol/L (98-107); Estimated GFR 37; Globulin 2.8 g/dL (2.4-3.5); Glucose 156 mg/dL (83-110); Magnesium 2.2 mg/dL (1.6-2.6); Potassium 4.6 mmol/L (3.5-5.1); Protein, Total 5.3 g/dL (5.8-8.1); Sodium 130 mmol/L (136-145)
[2021-11-14] MEDS: Albumin 25% 25 GM/100 ML BOT IVPB SCH ×3 (07:18→17:45)
[2021-11-14] MEDS ORDERED: Communication Order-Pharmacy FS SCH (08:15)
[2021-11-14] MEDS: Mupirocin 2% Ointment 22 GM Tube TOP SCH ×3 (08:37→21:08)
[2021-11-14] MEDS: Senokot S 8.6-50 MG TAB PO SCH ×2 (08:44→21:04)
[2021-11-14] MEDS: Pantoprazole 40 MG VIAL IVP SCH ×2 (08:44→21:04)
[2021-11-14] MEDS: Digoxin 0.125 MG TAB PO SCH (08:44)
[2021-11-14] MEDS: Polyethylene Glycol 3350 17 GM Packet PER TUBE SCH ×2 (08:44→21:07)
[2021-11-14] MEDS: Folic Acid 1 MG TAB PO SCH (08:44)
[2021-11-14] MEDS: Zinc Sulfate 220 MG CAP PO SCH (08:44)
[2021-11-14] MEDS: Cholecalciferol (Vitamin D3) 400 UNITS TAB PO SCH ×3 (08:44→21:04)
[2021-11-14] MEDS: Apixaban 5 MG TAB PO SCH ×2 (08:44→21:04)
[2021-11-14] MEDS: Nystatin 500,000 UNITS/5 ML UDCUP SSW SCH ×4 (08:45→21:02)
[2021-11-14 13:10] VITALS: BMI 48.7
[2021-11-14] MEDS: Midazolam In 0.9 % NaCl/PF 100 ML IVPB SCH (13:27)
[2021-11-14] MEDS: Atorvastatin Calcium 40 MG TAB PO SCH (21:04)
[2021-11-14] MEDS: Lantus 1000 UNITS/10 ML VIAL SC SCH (21:06)
[2021-11-15] MEDS: Albumin 25% 25 GM/100 ML BOT IVPB SCH ×4 (00:17→20:31)
[2021-11-15] MEDS: fentaNYL Citrate-0.9 % NaCl/PF 100 ML IVPB SCH ×2 (01:27→16:02)
[2021-11-15] MEDS: WATER IVPB SCH ×4 (03:08→21:18)
[2021-11-15] MEDS: DEXTROSE 5% IVPB SCH ×4 (03:08→21:18)
[2021-11-15] MEDS: TRIMETHOPRIM IVPB SCH ×4 (03:08→21:18)
[2021-11-15] MEDS: SULFAMETHOXAZOLE IVPB SCH ×4 (03:08→21:18)
[2021-11-15 03:43] LABS: ALT (SGPT) 26 U/L (8-55); AST (SGOT) 43 U/L (5-34); Albumin 3.3 g/dL (3.4-4.8); Alkaline Phosphatase 90 U/L (40-110); Anion Gap 15 mmol/L (10-20); BUN (Urea Nitrogen) 46 mg/dL (8.4-25.7); Bilirubin, Total 0.3 mg/dL (0.2-1.2); Calc. Creatinine Clearance 77 mL/min (70-130); Calcium 8.5 mg/dL (7.8-10.44); Carbon Dioxide 33 mmol/L (23-31); Chloride 87 mmol/L (98-107); Estimated GFR 35; Globulin 2.4 g/dL (2.4-3.5); Glucose 95 mg/dL (83-110); Magnesium 2.4 mg/dL (1.6-2.6); Potassium 4.9 mmol/L (3.5-5.1); Protein, Total 5.7 g/dL (5.8-8.1); Sodium 130 mmol/L (136-145)
[2021-11-15 03:56] LABS: ALV-art Gradient 459.625 mmHg (0-20); Actual Bicarbonate (HCO3a) 36.6 mEq/L (22-28); Base Excess (BEa) 9.6 mEq/L (-2.0 to +3.0); CO2 Tension 66.5 mmHg (35.0-45.0); Calcium, Ionized (arterial) 1.14 mmol/L (1.12-1.30); Carboxyhemoglobin (COHb) 1.5 gm% (0.0-3.0); Hemoglobin (Hb) 8.4 g/dL (14.0-18.0); O2 Tension (PaO2), arterial 63.3 mmHg (> 70.0); Potassium - ABG Lab 4.6 mmol/L (3.70-5.30); Puncture Site RRA; pH, Arterial 7.36 (7.35-7.45)
[2021-11-15] MEDS: Norepinephrine 8 MG/0.9% NS 250 ML IVPB SCH (06:59)
[2021-11-15] MEDS: Mupirocin 2% Ointment 22 GM Tube TOP SCH ×3 (08:02→20:35)
[2021-11-15] MEDS: Apixaban 5 MG TAB PO SCH ×2 (08:08→20:30)
[2021-11-15] MEDS: Cholecalciferol (Vitamin D3) 400 UNITS TAB PO SCH ×3 (08:08→20:30)
[2021-11-15] MEDS: Pantoprazole 40 MG VIAL IVP SCH ×2 (08:08→20:31)
[2021-11-15] MEDS: Aspirin 81 mg Enteric Coated Tablet PO SCH (08:08)
[2021-11-15] MEDS: Senokot S 8.6-50 MG TAB PO SCH ×2 (08:08→20:30)
[2021-11-15] MEDS: Digoxin 0.125 MG TAB PO SCH (08:08)
[2021-11-15] MEDS: Polyethylene Glycol 3350 17 GM Packet PER TUBE SCH ×2 (08:09→20:31)
[2021-11-15] MEDS: Folic Acid 1 MG TAB PO SCH (08:09)
[2021-11-15] MEDS: Zinc Sulfate 220 MG CAP PO SCH (08:09)
[2021-11-15] MEDS: Nystatin 500,000 UNITS/5 ML UDCUP SSW SCH ×4 (08:10→20:31)
[2021-11-15] MEDS ORDERED: Albumin 25% 100 ML ONE (09:20)
[2021-11-15 09:25] LABS: Bilirubin Neg (Negative); Blood, Urine 250 (Negative); Clarity Clear (Clear); Glucose, Urine (Dipstick) Normal (Negative); Ketone, Urine Negative (Negative); Leukocyte Negative (Negative); Nitrite Negative (Negative); Protein, Urine (Dipstick) 30 mg/dl (Neg-Trace); Specific Gravity, Urine 1.025 (1.002-1.036)
[2021-11-15 09:28] LABS: Urine Culture Reflex No No
[2021-11-15 09:41] LABS: Creatinine, Urine 64.96 mg/dL (63-166); Protein, Urine Random Quant 22 mg/dL (1-14)
[2021-11-15 09:49] LABS: Bacteria/HPF 2+ HPF (None Seen); RBC/HPF 21-50 HPF (0-3); Squamous Epithelial 0-3 HPF (0-3); WBC/HPF 0-3 HPF (0-3)
[2021-11-15] MEDS ORDERED: Furosemide 40 MG/4 ML VIAL SLOW IVP ONE (10:15)
[2021-11-15] MEDS ORDERED: guaiFENesin ER 600 MG TAB PO SCH (12:15)
[2021-11-15] MEDS: ACYCLOVIR SODIUM IVPB SCH (15:00)
[2021-11-15] MEDS: SODIUM CHLORIDE 0.9% IVPB SCH (15:00)
[2021-11-15 17:09] LABS: Sodium, Urine Less than 20 mmol/L (Not Available); Urea Nitrogen, Random Urine 509 mg/dl
[2021-11-15] MEDS: Atorvastatin Calcium 40 MG TAB PO SCH (20:30)
[2021-11-15] MEDS: guaiFENesin ER 600 MG TAB PO SCH (20:30)
[2021-11-15] MEDS: Lantus 1000 UNITS/10 ML VIAL SC SCH (20:31)
[2021-11-16] MEDS: Midazolam In 0.9 % NaCl/PF 100 ML IVPB SCH (00:37)
[2021-11-16] MEDS: Albumin 25% 25 GM/100 ML BOT IVPB SCH (02:12)
[2021-11-16] MEDS: DEXTROSE 5% IVPB SCH ×4 (03:15→20:50)
[2021-11-16] MEDS: SODIUM CHLORIDE 0.9% IVPB SCH ×2 (03:15→14:43)
[2021-11-16] MEDS: ACYCLOVIR SODIUM IVPB SCH ×2 (03:15→14:43)
[2021-11-16] MEDS: TRIMETHOPRIM IVPB SCH ×4 (03:15→20:50)
[2021-11-16] MEDS: SULFAMETHOXAZOLE IVPB SCH ×4 (03:15→20:50)
[2021-11-16] MEDS: WATER IVPB SCH ×4 (03:15→20:50)
[2021-11-16] MEDS: Norepinephrine 8 MG/0.9% NS 250 ML IVPB SCH (03:21)
[2021-11-16 03:53] LABS: Actual Bicarbonate (HCO3a) 31.1 mEq/L (22-28); Base Excess (BEa) 4.1 mEq/L (-2.0 to +3.0); CO2 Tension 62.8 mmHg (35.0-45.0); Calcium, Ionized (arterial) 1.13 mmol/L (1.12-1.30); Carboxyhemoglobin (COHb) 1.7 gm% (0.0-3.0); Critical Notified Whom: LEKE; Hemoglobin (Hb) 7.7 g/dL (14.0-18.0); O2 Tension (PaO2), arterial 57.2 mmHg (> 70.0); Potassium - ABG Lab 4.8 mmol/L (3.70-5.30); Puncture Site RRA; pH, Arterial 7.31 (7.35-7.45)
[2021-11-16 04:20] LABS: Anion Gap 18 mmol/L (10-20); BUN (Urea Nitrogen) 58 mg/dL (8.4-25.7); Calc. Creatinine Clearance 59 mL/min (70-130); Carbon Dioxide 29 mmol/L (23-31); Chloride 85 mmol/L (98-107); Potassium 5.1 mmol/L (3.5-5.1); Sodium 127 mmol/L (136-145)
[2021-11-16 04:21] LABS: ALT (SGPT) 27 U/L (8-55); AST (SGOT) 48 U/L (5-34); Albumin 3.9 g/dL (3.4-4.8); Alkaline Phosphatase 97 U/L (40-110); Bilirubin, Total 0.5 mg/dL (0.2-1.2); Calcium 8.8 mg/dL (7.8-10.44); Digoxin 0.88 ng/mL (0.8-2.0); Estimated GFR 25; Globulin 2.1 g/dL (2.4-3.5); Glucose 97 mg/dL (83-110); Magnesium 2.5 mg/dL (1.6-2.6)
[2021-11-16 05:40] LABS: #Monocytes 0.5 10x3/uL (0.0-1.1); #Neutrophils 4.5 10x3/uL (1.5-8.4); %Basophils 0.3 % (0.0-2.0); %Eosinophils 0.7 % (0.0-6.0); %Lymphocytes 9.6 % (18.0-47.0); %Monocytes 8.9 % (0.0-10.0); %Neutrophils 77.6 % (40.0-75.0); Hemoglobin 6.8 g/dL (13.5-17.5); Mean Corpuscular HGB CONC 32.1 g/dL (32.0-36.0); Mean Corpuscular Hemoglobin 29.4 pg (27.0-33.0); Mean Corpuscular Volume 91.8 fl (81.2-95.1); Mean Platelet Volume 9.8 fl (7.4-10.4); Platelet Count 149 10x3/uL (150-450); RBC Distribution Width 17.4 % (11.5-14.5); Red Blood Cell (RBC) Count 2.31 10x6/uL (4.32-5.72); White Blood Cell (WBC) Count 5.8 10x3/uL (3.5-10.5)
[2021-11-16] MEDS ORDERED: Sodium Chloride 0.9% 1,000 ML IV SCH (06:30)
[2021-11-16] MEDS: fentaNYL Citrate-0.9 % NaCl/PF 100 ML IVPB SCH ×2 (07:53→23:00)
[2021-11-16] MEDS: Aspirin 81 mg Enteric Coated Tablet PO SCH (08:17)
[2021-11-16] MEDS: Mupirocin 2% Ointment 22 GM Tube TOP SCH ×3 (08:18→20:09)
[2021-11-16] MEDS: Folic Acid 1 MG TAB PO SCH (08:22)
[2021-11-16] MEDS: Polyethylene Glycol 3350 17 GM Packet PER TUBE SCH ×2 (08:22→20:07)
[2021-11-16] MEDS: guaiFENesin ER 600 MG TAB PO SCH ×2 (08:22→20:07)
[2021-11-16] MEDS: Pantoprazole 40 MG VIAL IVP SCH ×2 (08:22→20:07)
[2021-11-16] MEDS: Digoxin 0.125 MG TAB PO SCH (08:22)
[2021-11-16] MEDS: Zinc Sulfate 220 MG CAP PO SCH (08:22)
[2021-11-16] MEDS: Cholecalciferol (Vitamin D3) 400 UNITS TAB PO SCH ×3 (08:22→20:07)
[2021-11-16] MEDS: Senokot S 8.6-50 MG TAB PO SCH ×2 (08:22→20:07)
[2021-11-16] MEDS: Nystatin 500,000 UNITS/5 ML UDCUP SSW SCH ×4 (08:23→20:07)
[2021-11-16 16:46] LABS: Albumin 3.7 g/dL (3.4-4.8); Anion Gap 17 mmol/L (10-20); BUN (Urea Nitrogen) 69 mg/dL (8.4-25.7); BUN/Creatinine Ratio 22.33; Calc. Creatinine Clearance 49 mL/min (70-130); Calcium 8.5 mg/dL (7.8-10.44); Carbon Dioxide 30 mmol/L (23-31); Chloride 82 mmol/L (98-107); Estimated GFR 21; Glucose 106 mg/dL (83-110); Phosphorus 6.1 mg/dL (2.3-4.7); Potassium 5.5 mmol/L (3.5-5.1); Sodium 123 mmol/L (136-145)
[2021-11-16] MEDS ORDERED: Dextrose 50% Abboject 50 ML SYRINGE SLOW IVP PRN (18:04)
[2021-11-16] MEDS ORDERED: Albuterol Sulfate 2.5 mg/3 ml Neb NEB SCH (19:00)
[2021-11-16] MEDS ORDERED: Insulin Regular 300 UNITS/3 ML VIAL IVP SCH (19:00)
[2021-11-16] MEDS ORDERED: Calcium Gluc 4.6 MEQ/10 ML (100 MG/ML) SLOW IVP SCH (19:00)
[2021-11-16] MEDS: Atorvastatin Calcium 40 MG TAB PO SCH (20:07)
[2021-11-16] MEDS: Lantus 1000 UNITS/10 ML VIAL SC SCH (20:08)
[2021-11-16 23:38] LABS: #Monocytes 0.7 10x3/uL (0.0-1.1); #Neutrophils 6.8 10x3/uL (1.5-8.4); %Basophils 0.2 % (0.0-2.0); %Eosinophils 0.2 % (0.0-6.0); %Lymphocytes 6.3 % (18.0-47.0); %Monocytes 8.4 % (0.0-10.0); %Neutrophils 80.8 % (40.0-75.0); Hemoglobin 7.7 g/dL (13.5-17.5); Mean Corpuscular HGB CONC 32.8 g/dL (32.0-36.0); Mean Corpuscular Hemoglobin 29.8 pg (27.0-33.0); Mean Corpuscular Volume 91.1 fl (81.2-95.1); Mean Platelet Volume 9.6 fl (7.4-10.4); Platelet Count 175 10x3/uL (150-450); RBC Distribution Width 17.1 % (11.5-14.5); Red Blood Cell (RBC) Count 2.58 10x6/uL (4.32-5.72); White Blood Cell (WBC) Count 8.4 10x3/uL (3.5-10.5)
[2021-11-16 23:55] LABS: Anion Gap 19 mmol/L (10-20); BUN (Urea Nitrogen) 75 mg/dL (8.4-25.7); Calc. Creatinine Clearance 43 mL/min (70-130); Calcium 9.1 mg/dL (7.8-10.44); Carbon Dioxide 26 mmol/L (23-31); Chloride 81 mmol/L (98-107); Estimated GFR 18; Glucose 136 mg/dL (83-110); Magnesium 2.4 mg/dL (1.6-2.6); Potassium 5.3 mmol/L (3.5-5.1); Sodium 121 mmol/L (136-145)
[2021-11-17 02:37] LABS: Actual Bicarbonate (HCO3a) 25.5 mEq/L (22-28); Base Excess (BEa) -1.4 mEq/L (-2.0 to +3.0); CO2 Tension 54.7 mmHg (35.0-45.0); Calcium, Ionized (arterial) 1.16 mmol/L (1.12-1.30); Carboxyhemoglobin (COHb) 1.3 gm% (0.0-3.0); Critical Notified Whom: LEKE; Hemoglobin (Hb) 8.8 g/dL (14.0-18.0); Potassium - ABG Lab 5.7 mmol/L (3.70-5.30); Puncture Site RRA; pH, Arterial 7.29 (7.35-7.45)
[2021-11-17 02:39] LABS: ALV-art Gradient 577.625 mmHg (0-20)
[2021-11-17] MEDS: SODIUM CHLORIDE 0.9% IVPB SCH ×2 (03:24→14:28)
[2021-11-17] MEDS: TRIMETHOPRIM IVPB SCH (03:24)
[2021-11-17] MEDS: SULFAMETHOXAZOLE IVPB SCH (03:24)
[2021-11-17] MEDS: ACYCLOVIR SODIUM IVPB SCH ×2 (03:24→14:28)
[2021-11-17] MEDS: WATER IVPB SCH (03:24)
[2021-11-17] MEDS: DEXTROSE 5% IVPB SCH (03:24)
[2021-11-17 03:31] LABS: #Monocytes 0.8 10x3/uL (0.0-1.1); #Neutrophils 6.9 10x3/uL (1.5-8.4); %Basophils 0.3 % (0.0-2.0); %Eosinophils 0.2 % (0.0-6.0); %Lymphocytes 6.3 % (18.0-47.0); %Monocytes 9.7 % (0.0-10.0); %Neutrophils 79.8 % (40.0-75.0); Hemoglobin 7.7 g/dL (13.5-17.5); Mean Corpuscular HGB CONC 33.2 g/dL (32.0-36.0); Mean Corpuscular Hemoglobin 29.8 pg (27.0-33.0); Mean Corpuscular Volume 89.9 fl (81.2-95.1); Mean Platelet Volume 9.7 fl (7.4-10.4); Platelet Count 195 10x3/uL (150-450); RBC Distribution Width 17.2 % (11.5-14.5); Red Blood Cell (RBC) Count 2.58 10x6/uL (4.32-5.72); White Blood Cell (WBC) Count 8.6 10x3/uL (3.5-10.5)
[2021-11-17 03:44] LABS: Phosphorus 6.3 mg/dL (2.3-4.7)
[2021-11-17 03:45] LABS: ALT (SGPT) 46 U/L (8-55); AST (SGOT) 82 U/L (5-34); Albumin 3.7 g/dL (3.4-4.8); Alkaline Phosphatase 138 U/L (40-110); Anion Gap 22 mmol/L (10-20); BUN (Urea Nitrogen) 76 mg/dL (8.4-25.7); Bilirubin, Total 0.6 mg/dL (0.2-1.2); Calc. Creatinine Clearance 42 mL/min (70-130); Calcium 8.9 mg/dL (7.8-10.44); Carbon Dioxide 26 mmol/L (23-31); Chloride 81 mmol/L (98-107); Estimated GFR 17; Globulin 2.2 g/dL (2.4-3.5); Glucose 104 mg/dL (83-110); Magnesium 2.6 mg/dL (1.6-2.6); Protein, Total 5.9 g/dL (5.8-8.1); Sodium 123 mmol/L (136-145)
[2021-11-17] MEDS ORDERED: Dextrose 50% Abboject 50 ML SYRINGE SLOW IVP PRN (04:03)
[2021-11-17] MEDS ORDERED: Insulin Regular 300 UNITS/3 ML VIAL IVP SCH (04:15)
[2021-11-17] MEDS ORDERED: Calcium Gluconate 4.6 MEQ in Sodium Chloride 0.9% 100 ML IVPB ONE (04:30)
[2021-11-17 08:14] VITALS: TEMP 98.8
[2021-11-17] MEDS: Zinc Sulfate 220 MG CAP PO SCH (08:46)
[2021-11-17] MEDS: Folic Acid 1 MG TAB PO SCH (08:46)
[2021-11-17] MEDS: Pantoprazole 40 MG VIAL IVP SCH ×2 (08:46→20:43)
[2021-11-17] MEDS: Senokot S 8.6-50 MG TAB PO SCH ×2 (08:47→20:43)
[2021-11-17] MEDS: Digoxin 0.125 MG TAB PO SCH (08:47)
[2021-11-17] MEDS: guaiFENesin ER 600 MG TAB PO SCH ×2 (08:47→20:42)
[2021-11-17] MEDS: Polyethylene Glycol 3350 17 GM Packet PER TUBE SCH ×2 (08:47→20:43)
[2021-11-17] MEDS: Cholecalciferol (Vitamin D3) 400 UNITS TAB PO SCH ×3 (08:47→20:42)
[2021-11-17] MEDS: Nystatin 500,000 UNITS/5 ML UDCUP SSW SCH ×4 (08:49→20:43)
[2021-11-17] MEDS: Mupirocin 2% Ointment 22 GM Tube TOP SCH ×3 (08:52→20:43)
[2021-11-17] MEDS: Sodium Bicarbonate 75 MEQ in Dextrose 5% in Water 500 ML IV SCH ×3 (09:26→23:09)
[2021-11-17] MEDS: Propofol 1,000 MG/100 ML VIAL IV PRN ×4 (09:26→21:23)
[2021-11-17] MEDS: Aspirin 81 mg Enteric Coated Tablet PO SCH (12:57)
[2021-11-17] MEDS: Midazolam In 0.9 % NaCl/PF 100 ML IVPB SCH (14:26)
[2021-11-17] MEDS: fentaNYL Citrate-0.9 % NaCl/PF 100 ML IVPB SCH (15:00)
[2021-11-17] MEDS: Atorvastatin Calcium 40 MG TAB PO SCH (20:42)
[2021-11-17] MEDS: Lantus 1000 UNITS/10 ML VIAL SC SCH (21:23)
[2021-11-17] MEDS: HumaLOG 300 UNITS/3 ML VIAL SC PRN (21:23)
[2021-11-17] MEDS: Norepinephrine 8 MG/0.9% NS 250 ML IVPB SCH (21:23)
[2021-11-17 22:08] LABS: HSV 1 - DNA Positive (Negative); HSV 2 - DNA Negative (Negative)
[2021-11-18] MEDS: Propofol 1,000 MG/100 ML VIAL IV PRN ×2 (01:05→05:21)
[2021-11-18] MEDS: ACYCLOVIR SODIUM IVPB SCH (02:57)
[2021-11-18] MEDS: SODIUM CHLORIDE 0.9% IVPB SCH (02:57)
[2021-11-18 04:00] VITALS: BP 114/48
[2021-11-18 04:59] LABS: ALT (SGPT) 65 U/L (8-55); AST (SGOT) 107 U/L (5-34); Albumin 3.4 g/dL (3.4-4.8); Alkaline Phosphatase 188 U/L (40-110); Anion Gap 19 mmol/L (10-20); BUN (Urea Nitrogen) 94 mg/dL (8.4-25.7); Bilirubin, Total 0.6 mg/dL (0.2-1.2); Calc. Creatinine Clearance 35 mL/min (70-130); Calcium 8.6 mg/dL (7.8-10.44); Carbon Dioxide 28 mmol/L (23-31); Chloride 78 mmol/L (98-107); Estimated GFR 14; Globulin 2.2 g/dL (2.4-3.5); Glucose 148 mg/dL (83-110); Magnesium 2.7 mg/dL (1.6-2.6); Potassium 6.4 mmol/L (3.5-5.1); Protein, Total 5.6 g/dL (5.8-8.1)
[2021-11-18 05:13] LABS: #Monocytes 0.9 10x3/uL (0.0-1.1); #Neutrophils 6.1 10x3/uL (1.5-8.4); %Basophils 0.3 % (0.0-2.0); %Eosinophils 0.1 % (0.0-6.0); %Lymphocytes 9.3 % (18.0-47.0); %Monocytes 10.9 % (0.0-10.0); Hemoglobin 7.9 g/dL (13.5-17.5); Mean Corpuscular HGB CONC 33.8 g/dL (32.0-36.0); Mean Corpuscular Hemoglobin 29.7 pg (27.0-33.0); Mean Platelet Volume 10.2 fl (7.4-10.4); Platelet Count 221 10x3/uL (150-450); RBC Distribution Width 17.4 % (11.5-14.5); Red Blood Cell (RBC) Count 2.66 10x6/uL (4.32-5.72); White Blood Cell (WBC) Count 7.9 10x3/uL (3.5-10.5)
[2021-11-18 05:15] LABS: Sodium 119 mmol/L (136-145)
== END 2021-11-18 07:07 | disposition expired | DRG 870 ==
LOC: CSHERS 12:27 → CSHTELE 16:12 → CSHIMCU 10-26 12:01
PROVIDERS: ADMIT Internal Medicine; ATTEND Family Medicine
PROC: XW033E5 Introduction of Remdesivir Anti-infective into Peripheral Vein, Percutaneous Approach, New Technology Group 5 (ICD-10-PCS; 2021-10-16)
PROC: 3E0333Z Introduction of Anti-inflammatory into Peripheral Vein, Percutaneous Approach (ICD-10-PCS; 2021-10-16)
PROC: 3E03329 Introduction of Other Anti-infective into Peripheral Vein, Percutaneous Approach (ICD-10-PCS; 2021-10-16)
PROC: 8E0ZXY6 Isolation (ICD-10-PCS; 2021-10-16)
PROC: XW0DXM6 Introduction of Baricitinib into Mouth and Pharynx, External Approach, New Technology Group 6 (ICD-10-PCS; 2021-10-17)
PROC: 5A09557 Assistance with Respiratory Ventilation, Greater than 96 Consecutive Hours, Continuous Positive Airway Pressure (ICD-10-PCS; 2021-10-26)
PROC: 3E033XZ Introduction of Vasopressor into Peripheral Vein, Percutaneous Approach (ICD-10-PCS; 2021-10-26)
PROC: 5A1955Z Respiratory Ventilation, Greater than 96 Consecutive Hours (ICD-10-PCS; 2021-11-04)
PROC: 0BH18EZ Insertion of Endotracheal Airway into Trachea, Via Natural or Artificial Opening Endoscopic (ICD-10-PCS; 2021-11-04)
PROC: 3E043XZ Introduction of Vasopressor into Central Vein, Percutaneous Approach (ICD-10-PCS; 2021-11-05)
PROC: 0HB1XZZ Excision of Face Skin, External Approach (ICD-10-PCS; 2021-11-11)
PROC: 02HV33Z Insertion of Infusion Device into Superior Vena Cava, Percutaneous Approach (ICD-10-PCS; principal; 2021-11-15)
PROC: B548ZZA Ultrasonography of Superior Vena Cava, Guidance (ICD-10-PCS; 2021-11-15)
DX: A41.9 Sepsis, unspecified organism (principal); U07.1 COVID-19; J12.82 Pneumonia due to coronavirus disease 2019; R65.21 Severe sepsis with septic shock; J18.9 Pneumonia, unspecified organism; J80 Acute respiratory distress syndrome; I50.33 Acute on chronic diastolic (congestive) heart failure; J15.6 Pneumonia due to other Gram-negative bacteria; I50.32 Chronic diastolic (congestive) heart failure; E87.2 Acidosis; Z68.42 Body mass index [BMI] 45.0-49.9, adult; E46 Unspecified protein-calorie malnutrition; N17.9 Acute kidney failure, unspecified; E66.2 Morbid (severe) obesity with alveolar hypoventilation; E87.0 Hyperosmolality and hypernatremia; B00.2 Herpesviral gingivostomatitis and pharyngotonsillitis; L03.211 Cellulitis of face; I96 Gangrene, not elsewhere classified; I13.0 Hypertensive heart and chronic kidney disease with heart failure and stage 1 through stage 4 chronic kidney disease, or unspecified chronic kidney disease; I48.0 Paroxysmal atrial fibrillation; E78.2 Mixed hyperlipidemia; E55.9 Vitamin D deficiency, unspecified; I87.2 Venous insufficiency (chronic) (peripheral); I25.118 Atherosclerotic heart disease of native coronary artery with other forms of angina pectoris; E11.22 Type 2 diabetes mellitus with diabetic chronic kidney disease; E11.51 Type 2 diabetes mellitus with diabetic peripheral angiopathy without gangrene; J32.9 Chronic sinusitis, unspecified; M19.90 Unspecified osteoarthritis, unspecified site; I49.5 Sick sinus syndrome; N18.2 Chronic kidney disease, stage 2 (mild); E87.5 Hyperkalemia; T38.0X5A Adverse effect of glucocorticoids and synthetic analogues, initial encounter; Y92.239 Unspecified place in hospital as the place of occurrence of the external cause; S09.8XXA Other specified injuries of head, initial encounter; X58.XXXA Exposure to other specified factors, initial encounter; I95.2 Hypotension due to drugs; T41.295A Adverse effect of other general anesthetics, initial encounter; D63.1 Anemia in chronic kidney disease; D69.6 Thrombocytopenia, unspecified; B36.9 Superficial mycosis, unspecified; Z85.72 Personal history of non-Hodgkin lymphomas; Z92.21 Personal history of antineoplastic chemotherapy; I25.2 Old myocardial infarction; Z82.49 Family history of ischemic heart disease and other diseases of the circulatory system; Z95.1 Presence of aortocoronary bypass graft; Z79.01 Long term (current) use of anticoagulants; Z79.899 Other long term (current) drug therapy; Z79.82 Long term (current) use of aspirin; Z86.718 Personal history of other venous thrombosis and embolism; Z98.890 Other specified postprocedural states; Z83.438 Family history of other disorder of lipoprotein metabolism and other lipidemia; Z80.8 Family history of malignant neoplasm of other organs or systems
CPT/HCPCS: 36415; 36416; 36430; 36600; 71045; 71250; 71260; 71275; 74018; 74177; 76770; 80048; 80053; 80076; 80162; 80202; 81001; 82248; 82570; 82728; 82805; 83036; 83615; 83735; 83880; 84100; 84145; 84156; 84300; 84443; 84484; 84540; 85025; 85060; 85303; 85379; 85384; 85610; 85730; 86140; 86850; 86900; 86901; 87040; 87070; 87077; 87081; 87086; 87186; 87205; 87449; 87529; 87899; 88305; 88312; 88331; 88341; 88342; 93005; 93010; 93306; 93970; 94002; 94003; 94640; 94660; 94760; 96365; 96367; 97139; C9113; J0133; J0289; J0456; J0610; J0692; J0696; J0699; J1100; J1120; J1160; J1650; J1720; J1815; J1940; J1956; J2185; J2248; J2543; J2704; J3370; J3480; J3490; J7030; J7050; J7070; J7120; J7611; J7620; J7999; P9016; P9047; Q9967; S0028; U0002